=== PATIENT | female | born 1935 | race Caucasian/White ===

== ENCOUNTER → 2016-07-25 | Outpatient (CLI) | payer MEDICARE, OTHER ==
[~2016-07-25] MED LIST: ASPI-482 PO; CHOL20004 PO; DENO60DI SQ; IOHEXOL 180 MG/ML 10 ML VIAL. ONE; OMEP20CA5 PO; OXYC1TAB7 PO; SIMV20TA3 PO; SIMV40TA3 PO; TRIA1TAB2 PO; methylPREDNISolone ACETATE 40 MG/ML VIAL. ONE; methylPREDNISolone ACETATE 80 MG/ML VIAL. ONE
--- NOTE | 2016-07-26 02:26 | PAIN ---
DATE OF SERVICE: 07/25/2016 PROGRESS NOTE DIAGNOSES: Lumbar radiculopathy with lumbar spinal stenosis, degenerative disk disease and lumbar spondylosis. HISTORY OF PRESENT ILLNESS: The patient is an 81-year-old female who returns for followup status post lumbar epidural steroid injections, most recently on 04/26/2016. The patient reports she did very well with this near 100% improvement until the last 2-3 weeks. The patient reports now the pain in low back radiating to the right lower extremity in the posterior gluteus, posterior thigh and posterior calf, worse with walking and standing. The pain is deep, ache and constant, again worse with ambulation. The patient reports as a 6-7 on a scale of 10, currently a 6 right now. The patient reports no new motor or sensory deficits, no new bowel or bladder incontinence or other complaints, but still significant pain mostly with ambulation and standing. PHYSICAL EXAMINATION: VITAL SIGNS: Shows blood pressure 125/59, pulse 83, respirations 18, temperature 98.2 degrees Fahrenheit, and weight is 141 pounds. GENERAL: The patient is awake, alert, oriented, appropriate, very pleasant demeanor. HEENT: Shows normocephalic, atraumatic. Extraocular movements are intact and symmetrical. The patient wears eye glasses. Oral cavity shows mucous membranes are moist and pink. Dentition is intact. NECK: Shows anterior throat supple without palpable lymphadenopathy noted. Swallow reflex is symmetrical. CHEST: Shows normal on inspection. Breath sounds are clear to auscultation bilaterally. HEART: Shows S1 and S2 clear. ABDOMEN: Obese, soft, nontender, nondistended. No palpable organomegaly is noted. No rebound or guarding demonstrated. BACK: Shows spine grossly in midline, normal-appearing cervical lordotic curvature, slight exaggeration of thoracic kyphotic curvature and some mild flattening of lumbar lordotic curvature. Lumbar paraspinous musculature shows symmetrical with inspection. No evidence of atrophy, hypertrophy. With palpation, is moderately tender in the low lumbar distribution only bilaterally with palpation, but without radiation. No tenderness over the sacrum or sacroiliac regions. The patient shows good rotation of motion of the lumbar spine, both laterally as well as extension and flexion without radiation. EXTREMITIES: Lower extremities show deep tendon reflexes 1+ in the patellar and talocalcaneal tendons. Motor exam is strong with 5/5 dorsiflexion, extension, quadriceps and hamstring flexion and equal. Peripheral pulses are 1+ posterior tibial and dorsalis pedis pulses. PLAN: Options were discussed with the patient. The patient's old chart was reviewed as her current medication regimen and updated. Current review of systems updated today as well. We will proceed with a lumbar epidural steroid injection with fluoroscopic guidance as the first in this series. Risks were again discussed including, but not limited to bleeding, infection, possibility of epidural hematoma, subsequent neurologic compromise, dural puncture, headaches, spinal cord and/or nerve damage, side effects of steroid medication and poor results regarding pain control. The patient understands and wished to proceed. The patient will return to clinic in approximately 2 weeks for followup. She was counseled as to return appointment, activity level and side effects to be aware of. DIAGNOSES: Lumbar radiculopathy with lumbar spinal stenosis, degenerative disk disease and spondylosis. PROCEDURE: Lumbar epidural steroid injection, translaminar approach at the L5-S1 level using C-arm fluoroscopic guidance under sterile prep and drape using local anesthetic. MEDICATION INJECTED: 120 mg of Depo-Medrol plus 10 mL of preservative-free normal saline and 2 mL of Isovue contrast. CONDITION AT DISCHARGE: Stable. The patient tolerated the procedure well, had no complications. GAVINO COOK MD DR: SHAWNA/dar JOB#: [id number] / [id number]
== END | disposition home or self-care (01) ==
LOC: PNCL 08:15
PROVIDERS: ATTEND Anesthesiology
DX: M51.16 Intervertebral disc disorders with radiculopathy, lumbar region (principal); M48.06 Spinal stenosis, lumbar region; M47.26 Other spondylosis with radiculopathy, lumbar region
CPT/HCPCS: 62323; J1030; J1040

== ENCOUNTER → 2016-11-23 | Outpatient (CLI) | payer MEDICARE, OTHER ==
[~2016-11-23] MED LIST changes: -CHOL20004 PO; +CHOL200074 PO
--- NOTE | 2016-11-24 00:52 | PAIN ---
DATE OF SERVICE: 11/23/2016 DIAGNOSES: Lumbar radiculopathy with lumbar spinal stenosis, degenerative disk disease and lumbar spondylosis. HISTORY OF PRESENT ILLNESS: The patient is an 81-year-old female who returns for followup status post lumbar epidural steroid injection, last seen 07/25/2016. The patient did very well with this about a near 80-90% improvement, but is now about a 50% improvement in the low back and right lower extremity. The patient reports it is returning with about 5 on a scale of 10 at its worst and its least with a shooting pain in the low back, right lower extremity, posterior gluteus, posterior lateral thigh, and posterior calf. The patient reports worse with standing and walking, changing positions, but she feels better with sitting or lying down, does not awaken her from sleep at night. She is sleeping well, reports no new motor or sensory deficits, no new bowel or bladder incontinence or other complaints. PHYSICAL EXAMINATION: VITAL SIGNS: Today, the patient's blood pressure 137/60, pulse is 80, respirations are 18, temperature 98.0 degrees Fahrenheit. Height is 5 feet 2 inches, weight 143 pounds. GENERAL: The patient is awake, alert, oriented, appropriate, very pleasant demeanor. HEENT: Head shows normocephalic, atraumatic. Extraocular movements are intact and symmetrical. Oral cavity, mucous membranes are moist and pink. Dentition is intact. NECK: Shows anterior throat supple without palpable lymphadenopathy noted. Swallow reflex is symmetrical. Neck shows full rotational motion of cervical spine. CHEST: Shows normal on inspection. Breath sounds are clear to auscultation bilaterally. HEART: Shows S1 and S2 clear. No murmurs auscultated. ABDOMEN: Soft, nontender, nondistended. No palpable organomegaly, no rebound or guarding demonstrated. BACK: Shows spine grossly in the midline. Slight exaggeration of thoracic kyphosis, lumbar lordotic curvatures mildly flattened. Lumbar paraspinous muscle shows symmetrical on inspection with palpation shows mild tenderness in the lower lumbar distribution, more on the right than the left, but present bilaterally without significant atrophy, hypertrophy or trigger points. No radiation of pain, no tenderness over the sacrum or sacroiliac regions or the ____ spinous processes. EXTREMITIES: Lower extremities show deep tendon reflexes at 1+/4 in the patellar and tendo calcaneus tendons are equal. Motor exam is strong with 5/5 dorsiflexion, extension, quadriceps and hamstring flexion and symmetrical. Options were discussed with the patient and the patient's old chart was reviewed as her current medication regimen updated. Current review of systems updated today as well. We will proceed with a second in the series lumbar epidural steroid injection using the C-arm fluoroscopic guidance. Risks were again discussed including, but not limited to bleeding, infection, possibility of epidural hematoma, subsequent neurologic compromise, dural puncture, headaches, spinal cord and/or nerve damage, side effects of steroid medication and poor results regarding pain control. The patient understands and wishes to proceed. The patient will return to clinic in approximately 2 weeks for followup. She was counseled as to return appointment, activity level and side effects to be aware of. DIAGNOSES: Lumbar radiculopathy with lumbar spinal stenosis, degenerative disk disease and spondylosis. PROCEDURES: Lumbar epidural steroid injection in translaminar approach at the L5-S1 level using C-arm fluoroscopic guidance under sterile prep and drape using local anesthetic. MEDICATION INJECTED A total of 120 mg Depo-Medrol plus 10 mL of preservative-free normal saline and 2 mL of Isovue for contrast. CONDITION AT DISCHARGE: Stable. The patient tolerated procedure well, had no complications. GAVINO COOK MD DR: SHAWNA/dar JOB#: [id number] / [id number]
== END | disposition home or self-care (01) ==
LOC: PNCL 08:22
PROVIDERS: ATTEND Anesthesiology
DX: M51.16 Intervertebral disc disorders with radiculopathy, lumbar region (principal); M47.26 Other spondylosis with radiculopathy, lumbar region; M48.06 Spinal stenosis, lumbar region
CPT/HCPCS: 62323; J1030; J1040

== ENCOUNTER → 2016-12-21 | Outpatient (CLI) | payer MEDICARE, OTHER | END | disposition home or self-care (01) | LOC: PNCL 07:23 | PROVIDERS: ATTEND Anesthesiology | DX: M51.16 Intervertebral disc disorders with radiculopathy, lumbar region (principal); M47.26 Other spondylosis with radiculopathy, lumbar region; M48.06 Spinal stenosis, lumbar region | CPT/HCPCS: 62323; J1030; J1040 ==

== ENCOUNTER → 2017-04-04 | Outpatient (CLI) | payer MEDICARE, OTHER ==
--- NOTE | 2017-04-04 08:41 | PAIN ---
DATE OF SERVICE: 04/04/2017 DIAGNOSES: Lumbar radiculopathy with lumbar degenerative disk disease, spinal stenosis and lumbar spondylosis. HISTORY OF PRESENT ILLNESS: The patient is an 81-year-old female who returns for followup, status post lumbar epidural steroid injections, most recently seen on 12/21/2016. The patient did very well after the injections with approximately 80% improvement. Pain is still doing well, and is not so much into her right leg, but is in the low back and the right posterior gluteus to some extent. The patient reports it as aching and constant, becoming more constant with time and with increased activity. 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 This is starting to cause the pain to be more noticeable. The patient reports again still doing well with the right leg, but significant pain in the low back. The patient reports it is 6 on a scale of 10 at its least, its worst, and its average, aching, and again becoming more constant. The patient reports no new motor or sensory deficits, no new bowel or bladder incontinence or other complaints. PHYSICAL EXAMINATION: VITAL SIGNS: Today, the patient's blood pressure 150/71, pulse 84, respirations 18, temperature 98.4 degrees Fahrenheit, height is 5 feet 2 inches, weight 142 pounds. GENERAL: The patient is awake, alert, oriented, appropriate, very pleasant demeanor. HEENT: Head shows normocephalic, atraumatic. Extraocular movements are intact and symmetrical. Oral cavity, mucous membranes are moist and pink. Dentition is intact. NECK: Shows anterior throat supple without palpable lymphadenopathy noted. Swallow reflex is symmetrical. CHEST: Shows normal on inspection. Breath sounds clear to auscultation bilaterally. HEART: Shows S1 and S2 clear. No murmurs auscultated. ABDOMEN: Soft, nontender, nondistended. No palpable organomegaly. No rebound or guarding demonstrated. BACK: Shows spine grossly in midline. Slight exaggeration of thoracic kyphosis and mild flattening of lumbar lordotic curvature. Lumbar paraspinous muscle shows some moderate tenderness with palpation bilaterally throughout the upper, middle and lower distribution of paraspinous muscles, but without radiation, without atrophy or hypertrophy. The patient shows no tenderness over the sacrum or sacroiliac regions. The patient shows good rotation bilaterally with the rotation of lumbar spine, greater than 10 degrees right and left, as well as extension greater than 10 degrees, forward flexion 45 degrees without difficulty. EXTREMITIES: Lower extremities showed deep tendon reflexes at 1+/4 in the patellar and tendo calcaneus tendons. Motor exam is strong with 5/5 dorsiflexion and extension and equal. Options were discussed with the patient. The patient's old chart was reviewed, as her current medication regimen updated. Current review of systems updated today as well. We will proceed with a lumbar epidural steroid injection today with fluoroscopic guidance. Risks were again discussed including, but not limited to bleeding, infection, possibility of epidural hematoma, subsequent neurologic compromise, dural puncture, headaches, spinal cord and/or nerve damage, side effects of steroid medication and poor results regarding pain control. The patient understands and wishes to proceed. The patient will return to clinic in approximately 2 weeks for followup. She was counseled as to return appointment, activity level and side effects to be aware of. DIAGNOSES: Lumbar radiculopathy with lumbar degenerative disk disease, spinal stenosis and spondylosis. PROCEDURES: Lumbar epidural steroid injection in translaminar approach at the L5-S1 level using C-arm fluoroscopic guidance under sterile prep and drape using local anesthetic. Medications injected: A total of 120 mg Depo-Medrol plus 10 mL preservative-free normal saline and 2 mL Isovue for contrast. CONDITION AT DISCHARGE: Stable. The patient tolerated procedure well, had no complications. GAVINO COOK MD DR: SHAWNA/dar JOB#: [id number] / [id number]
== END | disposition home or self-care (01) ==
LOC: PNCL 07:37
PROVIDERS: ATTEND Anesthesiology
DX: M51.16 Intervertebral disc disorders with radiculopathy, lumbar region (principal); M47.26 Other spondylosis with radiculopathy, lumbar region; M48.061 Spinal stenosis, lumbar region without neurogenic claudication
CPT/HCPCS: 62323; J1030; J1040

== ENCOUNTER → 2018-03-27 | Outpatient (CLI) | payer MEDICARE ==
[~2018-03-27] MED LIST changes: +LIDOCAINE 1% PF 2 ML VIAL. ONE
--- NOTE | 2018-03-27 19:25 | PAIN ---
DATE OF SERVICE: 03/27/2018 DIAGNOSES: Lumbar radiculopathy with lumbar degenerative disk disease, lumbar spinal stenosis with lumbar spondylosis. HISTORY OF PRESENT ILLNESS: The patient is an 82-year-old female, returns for followup status post lumbar epidural steroid injections, last seen on 04/04/2017. The patient did very well, but reports that just before Easter this year, she fell at religion while she was doing some decorating, stepped backwards on some stairs and broke her right femur. The patient reports she had to have internal fixation, but since that time has had significant pain across the low back. It is getting worse over the past 2-3 months when she is walking, standing, change in positions, bending, stooping, sitting for more than 15-20 minutes. The patient reports it is better when she lies down, usually do not awaken her from sleep. The patient reports pain is a 6 on a scale of 10 at all times, worst, average and at its least. It is aching, sometime sharp, constant across the low back, somewhat into the left lower extremity as well as in the posterior gluteus, posterior thigh, but generally just in the low back. The patient reports no new motor or sensory deficits. No new bowel or bladder incontinence or other complaints. PHYSICAL EXAMINATION: VITAL SIGNS: The patient's blood pressure 136/77, pulse 85, respirations 18, temperature 98.2 degrees Fahrenheit, height is 5 feet 2 inches, weighs 132 pounds. GENERAL: The patient is awake, alert, oriented, appropriate, very pleasant demeanor. HEENT: Shows normocephalic, atraumatic. Extraocular movements are intact and symmetrical. Oral cavity: Mucous membranes moist and pink. Dentition is intact. NECK: Shows anterior throat supple without palpable lymphadenopathy noted. Swallow reflex is symmetrical. CHEST: Shows normal on inspection. Breath sounds are clear to auscultation bilaterally. HEART: Shows S1, S2 clear. No murmurs auscultated. ABDOMEN: Soft, obese, nontender, nondistended. No palpable organomegaly is noted. No rebound or guarding demonstrated. BACK: Shows spine grossly in the midline. Normal appearing thoracic kyphosis and lumbar lordotic curvature. Lumbar paraspinous muscle shows symmetrical on inspection. Slight flattening of lumbar lordotic curvature. With palpation shows some moderate tenderness diffusely in the low lumbar distribution bilaterally, but only diffusely without atrophy or hypertrophy. No asymmetry, no trigger points. The patient has good rotational motion of lumbar spine, both laterally as well as extension and flexion without significant difficulty. EXTREMITIES: Lower extremities show deep tendon reflexes 1+ in the patellar and tendo calcaneus tendons. Motor exam is strong with 5/5 dorsiflexion, extension and equal bilaterally. Peripheral pulses are 1+ posterior tibia. No peripheral edema is noted. Options were discussed with the patient. The patient's old chart was reviewed as is her current medication regimen updated. Current review of systems is updated today as well. We will proceed with a lumbar epidural steroid injection today with fluoroscopic guidance. Risks were discussed including but not limited to bleeding, infection, possibility of epidural hematoma and subsequent neurological compromise, dural puncture, headaches, spinal cord and/or nerve damage, side effects of steroid medication and poor results regarding pain control. The patient understands and wished to proceed. The patient will return to the clinic in approximately 2 weeks for followup, was counseled on return appointment, activity level and side effects to be aware of. DIAGNOSES: Lumbar radiculopathy with lumbar degenerative disk disease, lumbar spinal stenosis and lumbar spondylosis. PROCEDURE: Lumbar epidural steroid injection, translaminar approach L5-S1 level using C-arm fluoroscopic guidance under sterile prep and drape using local anesthetic. MEDICATION INJECTED: A total of 120 mg Depo-Medrol plus 10 mL of preservative-free normal saline and 2 mL of Isovue for contrast. CONDITION AT DISCHARGE: Stable. The patient tolerated the procedure well, had no complications. GAVINO COOK MD DR: SHAWNA/dar JOB#: [id number] / [id number]
== END | disposition home or self-care (01) ==
LOC: PNCL 08:19
PROVIDERS: ATTEND Anesthesiology
DX: M51.16 Intervertebral disc disorders with radiculopathy, lumbar region (principal); M48.061 Spinal stenosis, lumbar region without neurogenic claudication; M47.26 Other spondylosis with radiculopathy, lumbar region
CPT/HCPCS: 62323; J1030; J1040; Q9965

== ENCOUNTER → 2018-04-16 | Outpatient (CLI) | payer MEDICARE ==
[~2018-04-16] MED LIST changes: -LIDOCAINE 1% PF 2 ML VIAL. ONE
--- NOTE | 2018-04-17 00:44 | PAIN ---
DATE OF SERVICE: 04/16/2018 PROGRESS NOTE FOR PAIN CLINIC DIAGNOSES: Lumbar radiculopathy with lumbar degenerative disk disease, lumbar spinal stenosis and spondylosis. HISTORY OF PRESENT ILLNESS: The patient is an 82-year-old female who returns for followup status post lumbar epidural steroid injection x 1, last seen on 03/27/2018. The patient did well but only for a very short period of time and reports the pain is not relieved what it usually is. It is still in her low back and left lower extremity, mostly in the posterior gluteus, posterior thigh, posterior calf and some in the lateral thigh as well. The patient reports it is worse with standing, walking, changing positions. Reports it is aching and becoming more constant. The patient reports it is an 8 on a scale of 10 at all times, average, worst and its least and is an 8 today. The patient reports no new motor or sensory deficits, has been awakening her from sleep occasionally but not usually from the pain. The patient reports it is worse with standing, walking, changing positions, better with sitting or lying down. The patient reports no new motor or sensory deficits and no new bowel or bladder incontinence or other complaints. PHYSICAL EXAMINATION: VITAL SIGNS: The patient's blood pressure 139/72, pulse 93, respirations 18 and temperature 97.8 degrees Fahrenheit. Height is 5 feet 2 inches and weight is 133 pounds. GENERAL: The patient is awake, alert, oriented, appropriate and very pleasant demeanor. HEENT: Head shows normocephalic and atraumatic. Extraocular movements are intact and symmetrical. Oral cavity: Mucous membranes moist and pink. Dentition is intact. NECK: Shows anterior throat supple without palpable lymphadenopathy noted. Swallow reflex symmetrical. CHEST: Shows normal on inspection. Breath sounds clear to auscultation bilaterally. HEART: Shows S1 and S2 clear. No murmurs auscultated. ABDOMEN: Soft, nontender and nondistended. No palpable organomegaly is noted. No rebound or guarding demonstrated. BACK: Shows spine grossly in the midline. Slight exaggeration of the thoracic kyphosis but some minor flattening only, lumbar lordotic curvature. Lumbar paraspinous muscle shows symmetrical on inspection, on palpation shows some moderate tenderness diffusely throughout the upper, middle and lower distribution of the paraspinous muscles but without radiation. No tenderness over the sacrum or sacroiliac regions. EXTREMITIES: The patient's lower extremities show deep tendon reflexes 1+ in the patellar and tendo-calcaneus tendons. Motor exam is strong with 5/5 dorsiflexion, extension, quadriceps and hamstring flexion and equal bilaterally. Peripheral pulses are 1+ posterior tibia. No peripheral edema is noted bilaterally. Options were discussed with the patient. The patient's old chart was reviewed as well as her current medication regimen updated. Current review of systems updated today as well. We will proceed with a second in the series lumbar epidural steroid injection today with fluoroscopic guidance. Risks were again discussed including, but not limited to bleeding, infection, possibility of epidural hematoma, subsequent neurologic compromise, dural puncture, headaches, spinal cord and/or nerve damage, side effects of steroid medication and poor results regarding pain control. The patient understands and wished to proceed. The patient will return to the clinic in approximately 2 weeks for followup, was counseled as to return appointment, activity level and side effects to be aware of. DIAGNOSES: Lumbar radiculopathy with lumbar degenerative disk disease, lumbar spinal stenosis and lumbar spondylosis. PROCEDURE: Lumbar epidural steroid injection, translaminar approach at the L5-S1 level using C-arm fluoroscopic guidance under sterile prep and drape using local anesthetic. MEDICATION INJECTED: A total of 120 mg Depo-Medrol plus 10 mL of preservative-free normal saline and 2 mL of Isovue for contrast. CONDITION AT DISCHARGE: Stable. The patient tolerated the procedure well and had no complications. GAVINO COOK MD DR: SHAWNA/dar JOB#: [id number] / [id number]
== END | disposition home or self-care (01) ==
LOC: PNCL 13:15
PROVIDERS: ATTEND Anesthesiology
DX: M51.16 Intervertebral disc disorders with radiculopathy, lumbar region (principal); M47.896 Other spondylosis, lumbar region; M48.061 Spinal stenosis, lumbar region without neurogenic claudication; Z98.890 Other specified postprocedural states
CPT/HCPCS: 62323; J1030; J1040; Q9965

== ENCOUNTER → 2018-08-21 | Outpatient (CLI) | payer MEDICARE ==
[~2018-08-21] MED LIST changes: +BUPIVACAINE MPF 0.25% 10 ML VIAL. ONE; -methylPREDNISolone ACETATE 40 MG/ML VIAL. ONE
--- NOTE | 2018-08-22 05:28 | PAIN ---
DATE OF SERVICE: 08/21/2018 PROGRESS NOTE FOR PAIN CLINIC DIAGNOSES: 1. Lumbar radiculopathy with lumbar spinal stenosis, lumbar degenerative disk disease and lumbar spondylosis. 2. Left greater trochanteric bursitis. HISTORY OF PRESENT ILLNESS: The patient is an 83-year-old female who returns for followup status post lumbar epidural steroid injection x 2, most recently seen on 04/16/2018. The patient reports she did very well and her back has been remarkably better with about 80% improvement overall. The patient reports she fell about 2 weeks ago in the [employer] parking lot on her left side and has had pain in the left lateral aspect of the hip and radiating into the lateral leg on occasion, some days it is much better, some days it is worse, today it is much worse. Yesterday, the patient reports she had very little pain at all in the left side, some across the low back, but essentially her low back she reports is doing quite well. The patient reports the pain in the hip and leg is shooting, stabbing, becoming more constant and worse with activity. The pain has been awakening her from sleep occasionally, but not every night only if she lays on her left side. The patient reports the pain is a 5 on a scale of 10 at its worst, 3 at its least, is a 5 on average and is a 5 today. The patient reports no new motor or sensory deficits, no new bowel or bladder incontinence or other complaints. PHYSICAL EXAMINATION: VITAL SIGNS: The patient's blood pressure 150/73, pulse 81, respirations 16, temperature 98.1 degrees Fahrenheit, height is 5 feet 2 inches and weight is 134 pounds. GENERAL: The patient is awake, alert, oriented, appropriate, very pleasant demeanor. HEENT: Head shows normocephalic and atraumatic. Extraocular movements are intact and symmetrical. Oral cavity: Mucous membranes are moist and pink. Dentition is intact. NECK: Shows anterior throat is supple without palpable lymphadenopathy noted. Swallow reflex is symmetrical. CHEST: Shows normal with inspection. Breath sounds are clear to auscultation bilaterally. HEART: Shows S1 and S2 clear. No murmurs are auscultated. ABDOMEN: Soft, nontender and nondistended. No palpable organomegaly is noted. No rebound or guarding demonstrated. BACK: Shows spine grossly in the midline. Slight exaggeration of the thoracic kyphosis and mild flattening of the lumbar lordotic curvature. Lumbar paraspinous muscle shows symmetrical on inspection. On palpation shows some moderate tenderness, but only diffusely without radiation. The patient has good rotational motion of the lumbar spine both laterally as well as extension and flexion without significant difficulty or pain reported. EXTREMITIES: The patient's lower extremities show deep tendon reflexes 1+ in the patellar and tendo-calcaneus tendons. Motor exam is strong with 5/5 dorsiflexion, extension and quadriceps and hamstring flexion equal. Peripheral pulses are 1+ posterior tibial. No peripheral edema is noted. The patient's left thigh shows significant tenderness over the left greater trochanter exquisitely tender with the patient withdrawing from the examining hand even with moderate pressure. Right side is nontender and the patient has had hip replacement on this side, but the left greater trochanter extremely tender with palpation. Options were discussed with the patient. The patient's old chart was reviewed as was her current medication regimen updated. Current review of systems updated today as well. We will proceed with a left-sided greater trochanteric bursa injection under fluoroscopic guidance. Risks were discussed including but not limited to bleeding, infection, possibility of intravascular injection sequelae, spread of local anesthetic and numbness, side effects of steroid medication, exposure to fluoroscopy as well as poor results regarding pain control. The patient understands and wished to proceed. The patient will return to the clinic in approximately 2 weeks or as necessary, was counseled as to return appointment, activity level and side effects to be aware of. DIAGNOSIS: Left greater trochanteric bursitis. PROCEDURES: Left greater trochanteric bursa injection under fluoroscopic guidance under sterile prep and drape using local anesthetic. MEDICATION INJECTED: A total of 40 mg of Depo-Medrol plus total of 3 mL of 0.25% bupivacaine and 2 mL of Isovue for contrast. CONDITION AT DISCHARGE: Stable. The patient tolerated the procedure well and had no complications. GAVINO COOK MD DR: SHAWNA/dar JOB#: [id number] / [id number]
== END | disposition home or self-care (01) ==
LOC: PNCL 09:00
PROVIDERS: ATTEND Anesthesiology
DX: M70.62 Trochanteric bursitis, left hip (principal); M48.061 Spinal stenosis, lumbar region without neurogenic claudication; M47.26 Other spondylosis with radiculopathy, lumbar region; M51.16 Intervertebral disc disorders with radiculopathy, lumbar region
CPT/HCPCS: 20610; 77002; J1040; J3490; Q9965; 20605

== ENCOUNTER → 2018-09-25 | Outpatient (CLI) | payer MEDICARE ==
[~2018-09-25] MED LIST changes: -BUPIVACAINE MPF 0.25% 10 ML VIAL. ONE; +methylPREDNISolone ACETATE 40 MG/ML VIAL. ONE
--- NOTE | 2018-09-26 04:58 | PAIN ---
DATE OF SERVICE: 09/25/2018 PROGRESS NOTE FOR PAIN CLINIC DIAGNOSES: Lumbar radiculopathy with lumbar spinal stenosis and lumbar degenerative disk disease with lumbar spondylosis. HISTORY OF PRESENT ILLNESS: The patient is an 83-year-old female who returns for followup status post lumbar epidural steroid injection and also, left greater trochanteric bursa injection. The patient reports she did very well after the last hip injection with about near 100% for the first 3-4 weeks. The patient reports the pain is returning now in the low back, radiating to posterior gluteus, posterior thigh, posterior calf and the lateral thigh and calf as well on the left side only. The patient reports no new motor or sensory deficits, no new bowel or bladder incontinence. It is getting worse with walking, standing, change in positions. The patient describes the pain as dull, alternating with sharp and shooting in the left lower extremity, none on the right side. The patient reports it awakens her from sleep, but only about every 6 hours or so and has only been doing this for about a week. The patient reports it is better with repositioning. She needs to get out of bed, change positions and get back to sleep. The patient reports no new motor or sensory deficits, no new bowel or bladder incontinence. Initially, the patient was able to walk better with greater ease and comfort, doing activities at home as well as volunteering with greater ease. The patient reports the pain is a 5 on a scale of 10 at all times, average, worst and least over the past week. PHYSICAL EXAMINATION: VITAL SIGNS: Today, the patient's blood pressure is 147/69, pulse 77, respirations are 18, temperature is 97.6 degrees Fahrenheit, height is 5 feet 2 inches, weight is 134 pounds. GENERAL: The patient is awake, alert, oriented, appropriate, very pleasant demeanor. HEENT: Head normocephalic, atraumatic. Extraocular movements are intact and symmetrical. Oral cavity, mucous membranes are moist and pink. Dentition is intact. NECK: Shows anterior throat supple without palpable lymphadenopathy noted. Swallow reflex is symmetrical. CHEST: Shows normal with inspection. Breath sounds clear to auscultation bilaterally. HEART: Shows S1, S2 clear. No murmurs auscultated. ABDOMEN: Soft, nontender, nondistended. No palpable organomegaly is noted. No rebound or guarding demonstrated. BACK: Shows spine grossly in the midline. Slight exaggeration of thoracic kyphosis and some minor flattening of lumbar lordotic curvature. Lumbar paraspinous muscle shows symmetrical on inspection, on palpation shows some moderate tenderness diffusely bilaterally, but only diffusely without significant radiation. The patient shows good rotational motion of lumbar spine both laterally as well as extension and flexion without significant difficulty. EXTREMITIES: The patient's lower extremities show deep tendon reflexes 1+ in the patellar and tendo calcaneus tendons. Motor exam is strong with 5/5 dorsiflexion, extension, quadriceps and hamstring flexion equal. Peripheral pulses are 1+ posterior tibia. No peripheral edema is noted bilaterally. Options were discussed with the patient. The patient's old chart was reviewed as her current medication regimen updated. Current review of systems updated today as well. We will proceed with a second in the series of lumbar epidural steroid injection with fluoroscopic guidance. Risks were again discussed including, but not limited to, bleeding, infection, possibility of epidural hematoma, subsequent neurological compromise, dural puncture, headaches, spinal cord and/or nerve damage, side effects of steroid medication and poor results regarding pain control. The patient understands and wished to proceed. The patient will return to the clinic in approximately 2 weeks for followup. She was counseled as to return appointment, activity level and side effects to be aware of. DIAGNOSIS: Lumbar radiculopathy with lumbar degenerative disk disease with lumbar spinal stenosis and lumbar spondylosis. PROCEDURE: Lumbar epidural steroid injection, translaminar approach at L5-S1 level using C-arm fluoroscopic guidance under sterile prep and drape using local anesthetic. MEDICATION INJECTED: A total of 120 mg Depo-Medrol plus 10 mL of preservative free normal saline and 2 mL of Isovue for contrast. CONDITION AT DISCHARGE: Stable. The patient tolerated the procedure well, had no complications. GAVINO COOK MD DR: SHAWNA/dar JOB#: [id number] / [id number]
== END | disposition home or self-care (01) ==
LOC: PNCL 12:56
PROVIDERS: ATTEND Anesthesiology
DX: M51.16 Intervertebral disc disorders with radiculopathy, lumbar region (principal); M48.061 Spinal stenosis, lumbar region without neurogenic claudication; M47.26 Other spondylosis with radiculopathy, lumbar region
CPT/HCPCS: 62323; J1030; J1040; Q9965

== ENCOUNTER → 2018-10-17 | Outpatient (CLI) | payer MEDICARE ==
[~2018-10-17] MED LIST changes: +BUPIVACAINE MPF 0.25% 10 ML VIAL. ONE; -methylPREDNISolone ACETATE 40 MG/ML VIAL. ONE
--- NOTE | 2018-10-17 18:54 | PAIN ---
DATE OF SERVICE: 10/17/2018 DIAGNOSES: 1. Lumbar radiculopathy with lumbar spinal stenosis, lumbar degenerative disk disease with lumbar spondylosis. 2. Left greater trochanteric bursitis. HISTORY OF PRESENT ILLNESS: The patient is an 83-year-old female who returns for followup status post lumbar epidural steroid injection x 2. The patient returns reporting doing very well with the back and left lower extremity pain, but her main complaint is left-sided lateral hip pain that she has had previously. The patient reports this came on just a few days ago without results of any specific injury or action. The patient reports she did stumble at [employer] and fell on her right side. The patient reports her left side has been painful though on the lateral aspect of the hips, radiating to the lateral aspect of the thigh, to the knee. The patient reports it is an 8 on a scale of 10 on average, worst and least and is an 8 today. It is sharp and constant, becoming more noticeable with walking and standing or bending her leg or stepping to the left side. The patient reports it does not awaken her from sleep at night. She feels better with sitting or lying down. No new motor or sensory deficits, no new bowel or bladder incontinence or other complaints. PHYSICAL EXAMINATION: VITAL SIGNS: The patient's blood pressure is 130/63, pulse 74, respirations are 16, temperature is 97.7 degrees Fahrenheit. Height is 5 feet 2 inches, weight is 132 pounds. GENERAL: The patient is awake, alert, oriented, appropriate, very pleasant demeanor. HEENT: Head is normocephalic, atraumatic. Extraocular movements intact and symmetrical. Oral cavity appears moist and pink. Dentition is intact. NECK: Shows anterior throat supple without palpable lymphadenopathy noted. Swallow reflex is symmetrical. CHEST: Shows normal with inspection. Breath sounds clear to auscultation bilaterally. HEART: Shows S1, S2 clear. No murmurs auscultated. ABDOMEN: Soft, nontender, nondistended. No palpable organomegaly is noted. No rebound or guarding demonstrated. BACK: Shows spine grossly in the midline. Normal-appearing thoracic kyphosis and lumbar lordotic curvature. Lumbar paraspinous muscle shows symmetrical on inspection. The patient has some [id number] tenderness in the low lumbar distribution only without asymmetry. The patient has good rotational motion of lumbar spine, both laterally as well as extension and flexion without difficulty. EXTREMITIES: The patient's lower extremities show deep tendon reflexes 1+ in the patellar and tendo calcaneus tendons are equal. Motor exam is strong with 5/5 dorsiflexion, extension and symmetrical. The patient's left hip shows significant tenderness with very severe pain over the left greater trochanter with moderate to deep palpation. Right side is nontender. Options were discussed with the patient. The patient's old chart was reviewed as was his current medication regimen updated. Current review of systems updated today as well. We will proceed with a left greater trochanteric bursa injection using C-arm fluoroscopic guidance under sterile prep and drape. Risks were discussed including but not limited to bleeding, infection, possibility of intravascular injection sequelae, spread of local anesthetic and numbness, side effects of steroid medication and poor results regarding pain control. The patient understands and wished to proceed. The patient will return to clinic in approximately 2 weeks for followup, was counseled as to return appointment, activity level and side effects to be aware of. DIAGNOSIS: Left greater trochanteric bursitis. PROCEDURE: Left greater trochanteric bursa injection under C-arm fluoroscopic guidance, using sterile prep and drape, using local anesthetic. MEDICATION INJECTED: A total of 80 mg Depo-Medrol plus total of 2 mL of 0.25% bupivacaine and 1.5 mL of contrast. CONDITION AT DISCHARGE: Stable. The patient tolerated the procedure well, had no complications. GAVINO COOK MD DR: SHAWNA/dar JOB#: [id number] / [id number]
== END | disposition home or self-care (01) ==
LOC: PNCL 09:05
PROVIDERS: ATTEND Anesthesiology
DX: M70.62 Trochanteric bursitis, left hip (principal); M51.16 Intervertebral disc disorders with radiculopathy, lumbar region; M48.061 Spinal stenosis, lumbar region without neurogenic claudication; M47.26 Other spondylosis with radiculopathy, lumbar region
CPT/HCPCS: 20610; 77002; J1040; J3490; Q9965; 20605

== ENCOUNTER → 2019-01-07 | Outpatient (CLI) | payer MEDICARE ==
[~2019-01-07] MED LIST changes: -BUPIVACAINE MPF 0.25% 10 ML VIAL. ONE; +methylPREDNISolone ACETATE 40 MG/ML VIAL. ONE
--- NOTE | 2019-01-07 08:36 | PAIN ---
DATE OF SERVICE: 01/07/2019 PROGRESS NOTE FOR PAIN CLINIC DIAGNOSES: Lumbar radiculopathy with lumbar degenerative disk disease with lumbar spinal stenosis and lumbar spondylosis. HISTORY OF PRESENT ILLNESS: The patient is an 83-year-old female who returns for followup status post lumbar epidural steroid injection as well as left greater trochanteric bursa injections. The patient reports she did very well after left hip injection. Her pain is returning in her low back. It has been since September since she has not had any treatment for it in the left leg with significant pain and fatigability especially with walking and standing in the posterior gluteus, posterior thigh, posterior calf on the left side, radiating. The patient reports it is dull and aching in the back and shooting in the leg. The patient reports it as a 5 on a scale of 10 at all times, worst, least and average and is a 5/10 today. The patient reports no new motor or sensory deficits. Initially, she was doing much better with increased walking and standing, but this is becoming more noticeable now in the last 3-4 weeks. The patient reports no new motor or sensory deficits, no new bowel or bladder incontinence, but significant fatigability with the left leg with walking even more than about 5-10 minutes. PHYSICAL EXAMINATION: VITAL SIGNS: The patient's blood pressure is 143/63, pulse 84, respirations 18, temperature 98.2 degrees Fahrenheit. Height is 5 feet 2 inches. Weight is 134 pounds. GENERAL: The patient is awake, alert, oriented, appropriate, very pleasant demeanor. HEENT: Head shows normocephalic, atraumatic. Extraocular muscles are intact and symmetrical. Oral cavity: Mucous membranes are moist and pink. Dentition is intact. NECK: Shows anterior throat supple without palpable lymphadenopathy noted. Swallow reflex symmetrical. CHEST: Shows normal on inspection. Breath sounds clear to auscultation bilaterally. HEART: Shows S1, S2 clear. No murmurs auscultated. ABDOMEN: Soft, nontender, nondistended. BACK: Shows spine grossly in the midline, slight exaggeration of thoracic kyphosis and minor flattening of lumbar lordotic curvature. Lumbar paraspinous muscle shows symmetrical on inspection with palpation shows some moderate tenderness diffusely, but only diffusely without radiation. The patient has good rotational motion of lumbar spine, both laterally as well as extension and flexion without significant difficulty. EXTREMITIES: Lower extremities showed deep tendon reflexes at 1+ in the patellar and tendo calcaneus tendons are equal. Motor exam is strong with approximately 4 on a scale of 5 with left dorsiflexion, extension at 5/5 on the right. Peripheral pulses are 1+ posterior tibia. No peripheral edema is noted. Options were discussed with the patient. The patient's old chart was reviewed as her current medication regimen updated. Current review of systems updated today as well. We will proceed with a lumbar epidural steroid injection today with fluoroscopic guidance. Risks were again discussed including, but not limited to bleeding, infection, possibility of epidural hematoma, subsequent neurologic compromise, dural puncture, headaches, spinal cord and/or nerve damage, side effects of steroid medications and poor results regarding pain control. The patient understands and wished to proceed. The patient will return to clinic in approximately 2 weeks for followup, was counseled as to return appointment, activity level and side effects to be aware of. DIAGNOSES: Lumbar radiculopathy with lumbar spinal stenosis, lumbar degenerative disk disease, lumbar spondylosis. PROCEDURE: Lumbar epidural steroid injection, translaminar approach L5-S1 level using C-arm fluoroscopic guidance under sterile prep and drape using local anesthetic. MEDICATIONS INJECTED: A total of 120 mg of Depo-Medrol plus 10 mL of preservative-free normal saline and 2 mL of Isovue for contrast. CONDITION AT DISCHARGE: Stable. The patient tolerated the procedure well and had no complications. GAVINO COOK MD DR: SHAWNA/dar JOB#: [id number] / [id number]
== END ==
LOC: PNCL 07:36
PROVIDERS: ATTEND Anesthesiology
DX: M51.16 Intervertebral disc disorders with radiculopathy, lumbar region (principal); M48.061 Spinal stenosis, lumbar region without neurogenic claudication; M47.816 Spondylosis without myelopathy or radiculopathy, lumbar region
CPT/HCPCS: 62323; J1030; J1040; Q9965

== ENCOUNTER → 2019-02-14 | Outpatient (CLI) | payer MEDICARE ==
--- NOTE | 2019-02-14 10:42 | PN ---
DATE: 02/14/2019 PROGRESS NOTE FOR PAIN CLINIC DIAGNOSIS: Lumbar radiculopathy with lumbar spinal stenosis, lumbar degenerative disk disease and lumbar spondylosis. HISTORY OF PRESENT ILLNESS: The patient is an 83-year-old female who returns for followup status post lumbar epidural steroid injection x 1 on January 07, 2019. The patient reports she did well, but not as well as she usually does with the injections. The patient reports still significant pain in the low back, left lower extremity, posterior thigh, posterior calf, lateral and anterior thigh as well on the left side. The patient reports it is worse with walking, standing, change in positions, has had some trouble walking using a cane over the last few days, does not using it today as she feels somewhat better. The patient reports her pain is 9 on a scale of 10 at its worst in the past week, 6 on average, 2 at its least and is at 2 today. The patient reports no new motor or sensory deficits. Current pain is aching, shooting, burning, cramping, sometimes severe, sometimes constant with standing and walking, but again better over the last few days. The patient reports it does not awaken her from sleep at night. No new motor or sensory deficits. No new bowel or bladder incontinence reported. PHYSICAL EXAMINATION: VITAL SIGNS: The patient's blood pressure 165/73, pulse 74, respirations are 16, temperature is 97.5 degrees Fahrenheit and weight is 131 pounds. GENERAL: The patient is awake, alert, oriented, appropriate, very pleasant demeanor. HEENT: Shows normocephalic, atraumatic. Extraocular movements are intact and symmetrical. Oral cavity: Mucous membranes moist and pink. Dentition is intact. NECK: Shows anterior throat supple without palpable lymphadenopathy noted. Swallow reflex symmetrical. CHEST: Shows normal on inspection. Breath sounds clear to auscultation bilaterally. HEART: Shows S1, S2 clear. No murmurs auscultated. ABDOMEN: Soft, nontender, nondistended. No palpable organomegaly is noted. There is no rebound or guarding demonstrated. BACK: Shows spine grossly in the midline. Normal appearing thoracic kyphosis and minor flattening of lumbar lordotic curvature. Lumbar paraspinous muscle shows symmetrical on inspection, on palpation shows some moderate tenderness diffusely bilaterally. The patient has full rotational motion of lumbar spine both laterally as well as extension and flexion are without difficulty. EXTREMITIES: Lower extremities show deep tendon reflexes 1+ in the patellar and tendo calcaneus tendons. Motor exam is approximately 4 on a scale of 5 on the left with dorsiflexion, extension, quadriceps and hamstring flexion on the right. Peripheral pulses are 1+. No peripheral edema is noted bilaterally. Options were discussed with the patient. The patient's old chart was reviewed as her current medication regimen updated. Current review of systems updated today as well. We will proceed with a lumbar epidural steroid injection today with fluoroscopic guidance at the second in the series. Risks were again discussed including, but not limited to bleeding, infection, possibility of epidural hematoma, subsequent neurological compromise, dural puncture, headaches, spinal cord and/or nerve damage, side effects of steroid medication and poor results regarding pain control. The patient understands and wished to proceed. The patient will return to our clinic in approximately 2 weeks for followup. She was counseled on return appointment, activity level and side effects to be aware of. DIAGNOSES: Lumbar radiculopathy with lumbar degenerative disk disease, spinal stenosis and lumbar spondylosis. PROCEDURE: Lumbar epidural steroid injection, translaminar approach L5-S1 level with C-arm fluoroscopic guidance under sterile prep and drape using local anesthetic. MEDICATION INJECTED: A total of 120 mg Depo-Medrol plus 10 mL of preservative-free normal saline and 2 mL of contrast. CONDITION AT DISCHARGE: Stable. The patient tolerated the procedure well, had no complications. GAVINO COOK MD DR: SHAWNA/dar JOB#: [id number] / [id number]
== END ==
LOC: PNCL 08:30
PROVIDERS: ATTEND Anesthesiology
DX: M51.16 Intervertebral disc disorders with radiculopathy, lumbar region (principal); M48.061 Spinal stenosis, lumbar region without neurogenic claudication; M47.816 Spondylosis without myelopathy or radiculopathy, lumbar region
CPT/HCPCS: 62323; J1030; J1040; Q9965

== ENCOUNTER → 2019-02-17 | Outpatient (CLI) | payer MEDICARE ==
[~2019-02-17] MED LIST changes: -IOHEXOL 180 MG/ML 10 ML VIAL. ONE; -methylPREDNISolone ACETATE 40 MG/ML VIAL. ONE; -methylPREDNISolone ACETATE 80 MG/ML VIAL. ONE
--- NOTE | 2019-02-17 15:38 | KCIC ---
LUMBAR SPINE WO CONTRAST History: Lumbar radiculopathy. Technique: Multiplanar, multi sequential MR imaging was performed of the lumbar spine. Comparison: None Findings: Grade 1 anterolisthesis L3 on L4 and L4 on L5. Minimal retrolisthesis T12 on L1 and L1 on L2. Normal vertebral body height. No fracture. No pathologic marrow replacing process. Conus terminates at the normal location. No evidence of nerve root clumping. Signal abnormality along the left posterior aspect of the thecal sac at the L4-L5 level extending inferiorly surrounding the descending sacral nerve roots on the left. L1-L2: Small posterior disc bulge. Mild facet arthropathy. No canal or neuroforaminal narrowing. L2-L3: Small posterior disc bulge. Moderate facet arthropathy. Mild bilateral subarticular recess narrowing. Ligament of flavum thickening. No canal narrowing. No neuroforaminal narrowing. L3-L4: Anterolisthesis. Disc uncovering. Posterior disc bulge. Moderate facet arthropathy. Mild to moderate canal narrowing. Severe subarticular recess narrowing. Mild to moderate right and mild left neuroforaminal narrowing. L4-L5: Anterolisthesis. Disc uncovering. Disc bulge. Advanced facet arthropathy. Severe subarticular recess narrowing. Moderate canal narrowing. Moderate left and mild right neuroforaminal narrowing. L5-S1: Broad-based posterior disc bulge. Moderate facet arthropathy. Severe subarticular recess narrowing. Mild canal narrowing. Severe right and moderate left neural foraminal narrowing. Impression: 1. Moderate multilevel lumbar spondylosis with advanced lower lumbar facet arthropathy and multilevel severe subarticular recess narrowing L3-L4, L4-L5 and L5-S1. 2. Moderate L4-L5 and mild to moderate L3-L4 canal narrowing. 3. Multilevel neural foraminal narrowing most prominent severe right L5-S1. 4. Grade 1 anterolisthesis L3 on L4 and L4 on L5. 5. Signal abnormality along the left posterior aspect of the thecal sac at the L4-L5 level surrounding and left sacral nerve roots. Comparison with prior imaging studies would be of benefit. If comparisons cannot be obtained postcontrast imaging can further assess. Electronically signed by: Zhao Ramirez DO (02/17/2019 3:35 PM) [id number]
== END | disposition home or self-care (01) ==
LOC: KCIC MRI 12:52
PROVIDERS: ATTEND Anesthesiology
DX: M47.26 Other spondylosis with radiculopathy, lumbar region (principal); M12.88 Other specific arthropathies, not elsewhere classified, other specified site; M48.07 Spinal stenosis, lumbosacral region; M47.818 Spondylosis without myelopathy or radiculopathy, sacral and sacrococcygeal region; M43.16 Spondylolisthesis, lumbar region
CPT/HCPCS: 72148

== ENCOUNTER → 2019-04-24 | Outpatient (CLI) | payer MEDICARE ==
[~2019-04-24] MED LIST changes: +ATOR40TA59 PO; +BUPIVACAINE MPF 0.25% 10 ML VIAL. ONE; +IOHEXOL 180 MG/ML 10 ML VIAL. ONE; +SIMV20TA18 PO; -SIMV20TA3 PO; +SIMV40TA18 PO; -SIMV40TA3 PO; +SPIR25TA5 PO; +methylPREDNISolone ACETATE 80 MG/ML VIAL. ONE
--- NOTE | 2019-04-24 10:31 | PAIN ---
DATE OF SERVICE: 04/24/2019 PROGRESS NOTE FOR PAIN CLINIC DIAGNOSES: 1. Lumbar radiculopathy with lumbar spinal stenosis, lumbar degenerative disk disease and lumbar spondylosis. 2. Left sacroiliitis. 3. Left greater trochanteric bursitis. HISTORY OF PRESENT ILLNESS: The patient is an 83-year-old female who returns for followup status post lumbar epidural steroid injection, most recently 02/14/2019. The patient did well with only about 10% improvement. The patient reports still significant pain in the left posterior hip and radiating to the left lateral thigh, some into the lateral lower leg and calf, but mostly in the hip and in the low back on the left side. The patient reports it is an aching pain, it is dull and sharp at times alternating in the low back and in the left hip especially. The patient reports it is worse with walking, standing and changing positions, especially getting up from a seated position. She is using a cane in her right hand to ambulate. The patient reports it is a 7 on a scale of 10 at its worst over the past week, 7 on average, 5 at its least and is a 7 today. The patient reports no new motor or sensory deficits, no new bowel or bladder incontinence. We did review her MRI scan with her once again. I have discussed with her on the phone back in February, also showing some moderate multilevel lumbar spondylosis and advanced lower lumbar facet arthropathy and severe subarticular recess narrowing at L3-L4, L4-L5 and L5-S1. The patient reports no new motor or sensory deficits, no new bowel or bladder incontinence or other complaints. PHYSICAL EXAMINATION: VITAL SIGNS: The patient's blood pressure is 155/74, pulse 76, respirations are 16, temperature 97.8 degrees Fahrenheit. Height is 5 feet 2 inches. Weigh is 135 pounds. GENERAL: The patient is awake, alert, oriented, appropriate, very pleasant demeanor. HEENT: Shows normocephalic, atraumatic. Extraocular movements are intact and symmetrical. Oral cavity shows mucous membranes are moist and pink. Dentition is intact. NECK: Shows anterior throat supple without palpable lymphadenopathy noted. Swallow reflex symmetrical. CHEST: Shows normal on inspection. Breath sounds are clear bilaterally. HEART: Shows S1, S2 clear. No murmurs auscultated. ABDOMEN: Soft, nontender, nondistended. BACK: Shows spine grossly in the midline, slight exaggeration of thoracic kyphosis and minor flattening of lumbar lordotic curvature. Lumbar paraspinous muscle shows symmetrical on inspection, with palpation shows some moderate tenderness diffusely bilaterally going diffusely without significant radiation. EXTREMITIES: The patient's lower extremities showed deep tendon reflexes at 1+ in the patellar and tendo calcaneus tendons. Motor exam is approximately 4 on a scale of 5 on the left and 5/5 on the right with dorsiflexion, extension, quadriceps and hamstring flexion. The patient's sacroiliac region shows significant tenderness with palpation over the posterior superior iliac spine on the left as well as over the joint itself. The right side is nontender throughout. The patient's straight leg raise noted to be mildly positive for radicular symptoms with 45 degrees leg raise on the left, but decreased with knee flexion. Gaenslen's maneuver is positive, however, on the left side with external rotation of the lower leg and posterior displacement of the lower leg off of the table. Right side is negative. Options were discussed with the patient. The patient's old chart was reviewed as her current medication regimen updated. Current review of systems updated today as well. We will proceed with a left sacroiliac joint injection today with fluoroscopic guidance. Risks were again discussed including but not limited to bleeding, infection, possibility of intravascular injection sequelae, spread of local anesthetic and numbness, side effects of steroid medication, exposure to fluoroscopy and poor results regarding pain control. The patient understands and wished to proceed. The patient will return to the clinic in approximately two weeks for followup. She was counseled on return appointment, activity level and side effects to be aware of. DIAGNOSIS: Left sacroiliitis. PROCEDURE: Left sacroiliac joint injection using C-arm fluoroscopic guidance under sterile prep and drape using local anesthetic. MEDICATIONS INJECTED: A total of 80 mg of Depo-Medrol plus 3 mL of 0.25% bupivacaine and 1.5 mL of contrast. CONDITION AT DISCHARGE: Stable. The patient tolerated procedure well, had no complications. GAVINO COOK MD DR: SHAWNA/dar JOB#: [id number] / [id number]
== END ==
LOC: PNCL 09:13
PROVIDERS: ATTEND Anesthesiology
DX: M46.1 Sacroiliitis, not elsewhere classified (principal); M51.16 Intervertebral disc disorders with radiculopathy, lumbar region; M70.62 Trochanteric bursitis, left hip
CPT/HCPCS: G0260; J1040; J3490; Q9965; 27096

== ENCOUNTER → 2019-05-22 | Outpatient (CLI) | payer MEDICARE ==
--- NOTE | 2019-05-22 21:47 | PAIN ---
DATE OF SERVICE: 05/22/2019 PROGRESS NOTE FOR PAIN CLINIC DIAGNOSES: 1. Lumbar radiculopathy with lumbar spinal stenosis, lumbar degenerative disk disease and lumbar spondylosis. 2. Left greater trochanteric bursitis. 3. Left sacroiliitis. 4. Left hip joint pain with osteoarthritis. HISTORY OF PRESENT ILLNESS: The patient is an 84-year-old female who returns for followup status post left sacroiliac joint injection, also recently lumbar epidural steroid injection in February and left hip greater trochanteric injection, all with only minimal decrease in pain. The patient has still significant left-sided pain, is now changed to more worse with weightbearing, standing, walking, climbing stairs and steps especially, she was doing some of these yesterday and had significant pain and radiation into the left groin with weightbearing. The patient reports it is getting worse with activity, standing, walking, especially climbing stairs or stepping up on a curb with significant pain in the left groin itself with ambulation and weightbearing. The patient reports it is aching, shooting, constant at times, worse when getting up from a seated position as well. The patient reports no loss of motor function, but she is using a cane again in her right hand and has it with her today. The patient reports the pain is 7 on a scale of 10 at its worst in the past week, 7 on average, 6 at its least and is a 7 today. The patient reports no new motor or sensory deficits, no new changes. PHYSICAL EXAMINATION: VITAL SIGNS: The patient's blood pressure 114/53, pulse 78, respirations 16, temperature 98.0 degrees Fahrenheit, weight is 130 pounds. GENERAL: The patient is awake, alert, oriented, appropriate, very pleasant demeanor. HEENT: Shows normocephalic, atraumatic. Extraocular movements are intact and symmetrical. Oral cavity: Mucous membranes moist and pink. Dentition is intact. NECK: Shows anterior throat supple without palpable lymphadenopathy noted. Swallow reflex symmetrical. CHEST: Shows normal on inspection. Breath sounds clear bilaterally. HEART: Shows S1, S2 clear. No murmurs auscultated. ABDOMEN: Soft, nontender, nondistended. No palpable organomegaly is noted. No rebound or guarding demonstrated. BACK: Shows spine grossly in the midline, slight exaggerated thoracic kyphosis, some minor flattening of lumbar lordotic curvature. Lumbar paraspinous muscle shows mild tenderness diffusely in the middle and lower distribution of paraspinous muscles, but without radiation. The patient has good rotational motion of lumbar spine, both laterally as well as extension and flexion without significant difficulty. EXTREMITIES: The patient's lower extremities show deep tendon reflexes at 1+ in the patellar, tendo-calcaneus tendon. Motor exam is approximately 4 on a scale of 5 on the left with dorsiflexion and extension, 5/5 on the right. The patient has some significant tenderness with external rotation of the left hip when lying supine with knee flexed, positive Jaden's maneuver on the left, but not on the right. Gaenslen's maneuvers are negative bilaterally. PLAN: Options were discussed with the patient. The patient's old chart was reviewed as her current medication regimen updated. Current review of systems updated today as well. We will proceed with a left intraarticular hip joint injection using C-arm fluoroscopic guidance. Risks were again discussed including, but not limited to bleeding, infection, possibility of intravascular injection sequelae, spread of local anesthetic and numbness, side effects of steroid medication and poor results regarding pain control. The patient understands and wished to proceed. The patient will return to the clinic in approximately 2 weeks for followup. She was counseled on return appointment, activity level and side effects to be aware of. DIAGNOSIS: Left hip joint pain with primary osteoarthritis. PROCEDURE: Left intra-articular hip joint injection using C-arm fluoroscopic guidance under sterile prep and drape using local anesthetic. MEDICATION INJECTED: A total of 3 mL of 0.25% bupivacaine, 80 mg Depo-Medrol and 2 mL of contrast. CONDITION AT DISCHARGE: Stable. The patient tolerated the procedure well, had no complications. GAVINO COOK MD DR: SHAWNA/dar JOB#: [id number] / [id number]
== END ==
LOC: PNCL 09:32
PROVIDERS: ATTEND Anesthesiology
DX: M16.12 Unilateral primary osteoarthritis, left hip (principal); M46.1 Sacroiliitis, not elsewhere classified; M54.16 Radiculopathy, lumbar region; M47.816 Spondylosis without myelopathy or radiculopathy, lumbar region; M70.62 Trochanteric bursitis, left hip; M48.061 Spinal stenosis, lumbar region without neurogenic claudication
CPT/HCPCS: 20610; 77002; J1040; J3490; Q9965

== ENCOUNTER 2019-07-29 18:02 | Inpatient (IN) | payer MEDICARE ==
[~2019-07-29] VITALS: Ht 157.5 cm; Wt 58.5 kg
[~2019-07-29 18:02] MED LIST changes: -BUPIVACAINE MPF 0.25% 10 ML VIAL. ONE; -IOHEXOL 180 MG/ML 10 ML VIAL. ONE; -methylPREDNISolone ACETATE 80 MG/ML VIAL. ONE
[2019-07-29] MEDS ORDERED: fentaNYL PF VIAL 100 MCG/2 ML VIAL IVP ONE (18:15)
[2019-07-29 18:27] LABS: BASO # 0.1 x10^3/uL (0.0-0.2); BASO % 1 % (0-3); EOS # 0.1 x10^3/uL (0.0-0.7); EOS % 1 % (0-3); HEMATOCRIT 35.7 % (36.0-47.0); HEMOGLOBIN 11.7 g/dL (12.0-15.5); LYMPH # 2.1 x10^3/uL (1.0-4.8); LYMPH % 26 % (24-48); MEAN CORPUSCULAR HEMOGLOBIN 28 pg (25-35); MEAN CORPUSCULAR HGB CONC 33 g/dL (31-37); MEAN CORPUSCULAR VOLUME 87 fL (79-100); MONO # 0.9 x10^3/uL (0.0-1.1); MONO % 11 % (0-9); NEUT # 4.9 x10^3/uL (1.8-7.7); NEUT % 61 % (31-73); PLATELET COUNT 332 x10^3/uL (140-400); RED BLOOD COUNT 4.12 x10^6/uL (3.50-5.40); RED CELL DISTRIBUTION WIDTH 15.4 % (11.5-14.5)
[2019-07-29 18:38] LABS: PROTHROMBIN TIME PATIENT 12.8 SEC (11.7-14.0)
[2019-07-29] MEDS ORDERED: MORPHINE SULFATE 4 MG/ML VIAL. IV ONE (18:45)
--- NOTE | 2019-07-29 19:14 | RAD ---
CT head and cervical spine without contrast History: Trauma Technique: Noncontrast CT imaging was performed of the head and cervical spine. Multiplanar reconstruction images are submitted. Exposure: One or more of the following individualized dose reduction techniques were utilized for this examination: 1. Automated exposure control 2. Adjustment of the mA and/or kV according to patient size 3. Use of iterative reconstruction technique. Head CT Comparison: None Findings: No acute extra-axial or parenchymal hemorrhage is identified. There is no significant intra-axial mass effect, midline shift, or extra-axial fluid collection. The patel-white differentiation of the major vascular territories is preserved. There is mild third and lateral ventriculomegaly likely due to mild generalized supratentorial atrophy. There is scattered at least mild ill-defined low-density of the supratentorial parenchyma bilaterally greatest of the frontal lobes. The mastoid air cells and the visualized paranasal sinuses are aerated. There is no significant focal calvarial abnormality. Impression: 1. No acute intracranial abnormality is identified. 2. There is mild supratentorial involutional change. Scattered ill-defined low-density of the supratentorial parenchyma is nonspecific, more commonly due to chronic microvascular ischemic disease in a patient this age. Cervical spine CT Comparison: None Findings: No acute cervical spine fracture is identified. Vertebral body stature is overall maintained. Atlanto-axial distance is within normal limits. There is appropriate alignment of lateral masses of C1 relative to C2. Occipital condylar-C1 relationship is maintained. There is fairly advanced degenerative disc disease C4-5 and C5-6 and to a lesser degree at C6-7. There is very mild grade 1 anterior spondylolisthesis C4-C5. Cervical vertebral body stature is overall maintained. There is multilevel cervical facet degenerative change. There is fairly severe narrowing of left C3-4-5 neural foramen, moderate to severe narrowing right greater than left at C5-6, lesser degree of narrowing on the right at C6-7. There is likely mild spinal stenosis about 8 to 9 mm at C5-6, also likely central canal stenosis estimated about 7 mm at C6-7. There is some atherosclerotic calcification of the carotid arteries in the neck bilaterally. There is [id number] dextroscoliosis of cervical spine. Impression: 1. No acute cervical spine fracture is identified. 2. There is multilevel cervical degenerative disc disease greatest at C4-5 and C5-6. 3. There is cervical spinal stenosis likely greatest at C6-7. There is multilevel cervical neural foramina compromise due to facet and uncovertebral degenerative change. There is cervical dextroscoliosis. Electronically signed by: Se Everett MD (07/29/2019 7:11 PM) [id number]
[2019-07-29 19:38] LABS: BILIRUBIN,URINE NEGATIVE (NEG); CLARITY,URINE CLOUDY; COLOR,URINE YELLOW; NITRITE,URINE NEGATIVE (NEG); PH,URINE 6.5; PROTEIN,URINE NEGATIVE (NEG-TRACE)
[2019-07-29 19:45] LABS: AMORPHOUS SEDIMENT,UR PRESENT /HPF; BACTERIA,URINE 0 /HPF (0-FEW); HYALINE CASTS, URINE FEW /HPF; RBC,URINE OCC /HPF (0-2); SQUAMOUS EPITHELIAL CELL,UR MOD /LPF; WBC,URINE OCC /HPF (0-4)
[2019-07-29 19:49] LABS: CALCIUM 9.5 mg/dL (8.5-10.1); GFR 52.7
[2019-07-29 19:55] LABS: ALBUMIN 2.9 g/dL (3.4-5.0); ALBUMIN/GLOBULIN RATIO 0.9 (1.0-1.7); TOTAL BILIRUBIN 0.5 mg/dL (0.2-1.0); TOTAL PROTEIN 6.2 g/dL (6.4-8.2)
--- NOTE | 2019-07-29 19:58 | RAD ---
HUMERUS RIGHT, SHOULDER 2+V RIGHT DATE: 07/29/2019 6:28 PM INDICATION: Trauma, pain COMPARISON: None. FINDINGS: Bones: Hill-Sachs deformity along the posterior humeral head.. Joints: Anterior glenohumeral dislocation. Acromioclavicular joint is congruent. IMPRESSION: Anterior glenohumeral dislocation with a Hill-Sachs deformity. Electronically signed by: Se Huizar MD (07/29/2019 7:55 PM) [id number]
[2019-07-29] MEDS ORDERED: PROPOFOL 10 MG/ML (20ML) VIAL. IV ONE (20:00)
[2019-07-29 20:06] VITALS: BP 152/70
--- NOTE | 2019-07-29 20:17 | RAD ---
HIP RIGHT 2V WITH PELVIS, TIBIA FIBULA RIGHT, RIGHT FEMUR XRAY DATE: 07/29/2019 6:59 PM INDICATION: Pain, trauma COMPARISON: None. FINDINGS: Right total hip arthroplasty. Surgical hardware is intact. No periprosthetic fracture. Right total knee arthroplasty. There are some cerclage wire fragments. Major surgical hardware is otherwise intact. Acute mildly displaced fracture of the distal femur extending from the metaphysis to the distal fibular prosthesis. Moderate degenerative changes of the left hip, SI joints, and symphysis pubis. Impression: Acute mildly displaced fracture of the distal femur extending from the metaphysis to the distal femur prosthetic component. Electronically signed by: Se Huizar MD (07/29/2019 8:14 PM) [id number]
--- NOTE | 2019-07-29 20:20 | RAD ---
EXAM: AP View of the chest DATE: 07/29/2019 6:59 PM INDICATION: Chest pain COMPARISON: No Prior FINDINGS: Heart is moderately enlarged. Aorta is tortuous. Mediastinal and hilar contours are stable. Bilateral perihilar groundglass airspace opacities are seen. Small bilateral pleural effusions. No pneumothorax. Anterior inferior dislocation right humeral head. IMPRESSION: 1. Cardiomegaly with bilateral airspace opacities and pleural effusions may be seen with pulmonary edema. Alternatively multifocal consolidative process such as pneumonia may have similar appearance. 2. Anterior inferior dislocation of the right humeral head Electronically signed by: Yves Alexis MD (07/29/2019 8:17 PM) [id number]
--- NOTE | 2019-07-29 20:50 | RAD ---
EXAM: 2 Views Right Shoulder DATE: 07/29/2019 8:19 PM INDICATION: Post shoulder reduction COMPARISON: 07/29/2019 FINDINGS: Suboptimal projection limits evaluation. Interval reduction of the right shoulder joint dislocation. AC joint degenerative changes are seen. Evaluation of the glenoid limited given projection. Right-sided parenchymal lung airspace opacities are partially profiled. IMPRESSION: 1. Interval reduction of the right shoulder. Suboptimal projections limits evaluation for underlying superimposed glenoid or humeral head fracture. Electronically signed by: Yves Alexis MD (07/29/2019 8:46 PM) [id number]
--- NOTE | 2019-07-29 21:03 | RAD ---
EXAM: AP, oblique and lateral views the right knee DATE: 07/29/2019 8:42 PM INDICATION: Right knee pain COMPARISON: No Prior FINDINGS: Changes of right total knee arthroplasty are seen. There is an acute periprosthetic fracture through the right femoral diametaphysis. Mild disc space and the lateral femoral condylar component. Small right knee joint effusion. Chronic right patellar fracture is seen with fractured patellar cerclage wires, with a small fragment displaced to the posterior joint. IMPRESSION: 1. Acute right femoral periprosthetic fracture. 2. Chronic/old right patellar fracture with fractured cerclage wires and distracted principal patellar fracture fragments. 3. Small right knee joint effusion. Electronically signed by: Yves Alexis MD (07/29/2019 9:00 PM) [id number]
[2019-07-29] MEDS ORDERED: oxyCODONE/APAP 5/325 1 TAB TABLET PO ONE (22:00)
--- NOTE | 2019-07-29 22:37 | PHYS DOC ---
Past Medical History Past Medical History: GERD, High Cholesterol, Other Additional Past Medical Histor: LOWER EXTREMITITY EDEMA Past Surgical History: Cholecystectomy, Knee Replacement, Other Additional Past Surgical Histo: VALVE REPLACEMENT Smoking Status: Never Smoker Alcohol Use: None Adult General Chief Complaint Chief Complaint: MECHANICAL FALL HPI HPI Patient is a 84 year old accidental fall from standing right shoulder injury and right knee pain. She reportedly tripped while walking at home landing on her right side and striking her ice on the ground. Denies loss of consciousness, headache, feeling dazed or neck pain. Patient with deformity right shoulder with arm held in fixed position, right knee swelling pain and tenderness with inability to stand leg secondary to pain. No hip pain, tenderness. Distal sensation and motor function intact. She is not currently on anticoagulation therapy.[] Review of Systems Review of Systems ROS as per HPI All other systems were reviewed and found to be within normal limits, except as documented in this note. Current Medications Current Medications Current Medications Medications (Trade) Dose Ordered Sig/Josefina Start Time Stop Time Status Last Admin Dose Admin Fentanyl Citrate (Fentanyl 2ml Vial) 50 mcg 1X ONCE 07/29/19 18:15 07/29/19 18:16 DC 07/29/19 18:35 50 MCG Morphine Sulfate (Morphine Sulfate) 4 mg 1X ONCE 07/29/19 18:45 07/29/19 18:46 DC 07/29/19 19:30 4 MG Oxycodone/ Acetaminophen (Percocet 5/325) 1 tab 1X ONCE 07/29/19 22:00 07/29/19 22:01 DC 07/29/19 22:00 1 TAB Propofol (Diprivan) 100 mg 1X ONCE 07/29/19 20:00 07/29/19 20:01 DC 07/29/19 20:23 100 MG Allergies Allergies Allergies Coded Allergies Type Severity Reaction Last Updated Verified No Known Drug Allergies 06/09/13 No Physical Exam Physical Exam Constitutional: Moderate distress secondary to pain, well nourished, no acute distress, non-toxic appearance. [] HENT: Normocephalic, abrasion on face, bilateral external ears normal, oropharynx moist, nose normal. [] Eyes: PERRLA, EOMI, conjunctiva normal. [] Neck: Normal range of motion, no midline tenderness, supple. [] Cardiovascular:Heart rate regular rhythm, no murmur. [] Lungs & Thorax: Bilateral breath sounds clear to auscultation [] Abdomen: Bowel sounds normal, soft, no tenderness. [] Skin: Warm, dry. [] Back: No tenderness. [] Extremities: Right shoulder, subtle deformity, shoulder held in a fixed position. Right knee, deformity, swelling and inability to flex knee. [] Neurologic: Alert and oriented X 3, normal motor function, normal sensory function, no focal deficits noted. [] Current Patient Data Vital Signs Vital Signs Date Time Temp Pulse Resp B/P (MAP) Pulse Ox O2 Delivery O2 Flow Rate FiO2 07/29/19 22:00 16 98 07/29/19 20:06 97.7 82 152/70 10.0 97.7 81 15.0 10.0 07/29/19 19:30 Room Air Lab Values Laboratory Tests Test 07/29/19 18:20 07/29/19 19:30 07/29/19 19:35 White Blood Count 8.0 x10^3/uL (4.0-11.0) Red Blood Count 4.12 x10^6/uL (3.50-5.40) Hemoglobin 11.7 g/dL (12.0-15.5) L Hematocrit 35.7 % (36.0-47.0) L Mean Corpuscular Volume 87 fL (79-100) Mean Corpuscular Hemoglobin 28 pg (25-35) Mean Corpuscular Hemoglobin Concent 33 g/dL (31-37) Red Cell Distribution Width 15.4 % (11.5-14.5) H Platelet Count 332 x10^3/uL (140-400) Neutrophils (%) (Auto) 61 % (31-73) Lymphocytes (%) (Auto) 26 % (24-48) Monocytes (%) (Auto) 11 % (0-9) H Eosinophils (%) (Auto) 1 % (0-3) Basophils (%) (Auto) 1 % (0-3) Neutrophils # (Auto) 4.9 x10^3/uL (1.8-7.7) Lymphocytes # (Auto) 2.1 x10^3/uL (1.0-4.8) Monocytes # (Auto) 0.9 x10^3/uL (0.0-1.1) Eosinophils # (Auto) 0.1 x10^3/uL (0.0-0.7) Basophils # (Auto) 0.1 x10^3/uL (0.0-0.2) Prothrombin Time 12.8 SEC (11.7-14.0) Prothrombin Time INR 1.0 (0.8-1.1) Urine Collection Type U cath Urine Color Yellow Urine Clarity Cloudy Urine pH 6.5 Urine Specific [place] 1.020 Urine Protein Negative mg/dL (NEG-TRACE) Urine Glucose (UA) Negative mg/dL (NEG) Urine Ketones (Stick) Negative mg/dL (NEG) Urine Blood Negative (NEG) Urine Nitrite Negative (NEG) Urine Bilirubin Negative (NEG) Urine Urobilinogen Dipstick 1.0 mg/dL (0.2 mg/dL) Urine Leukocyte Esterase Negative (NEG) Urine RBC Occ /HPF (0-2) Urine WBC Occ /HPF (0-4) Urine Squamous Epithelial Cells Mod /LPF Urine Amorphous Sediment Present /HPF Urine Bacteria 0 /HPF (0-FEW) Urine Hyaline Casts Few /HPF Urine Mucus Marked /LPF Sodium Level 143 mmol/L (136-145) Potassium Level 4.0 mmol/L (3.5-5.1) Chloride Level 105 mmol/L (98-107) Carbon Dioxide Level 26 mmol/L (21-32) Anion Gap 12 (6-14) Blood Urea Nitrogen 17 mg/dL (7-20) Creatinine 1.0 mg/dL (0.6-1.0) Estimated GFR (Cockcroft-Gault) 52.7 BUN/Creatinine Ratio 17 (6-20) Glucose Level 162 mg/dL (70-99) H Calcium Level 9.5 mg/dL (8.5-10.1) Total Bilirubin 0.5 mg/dL (0.2-1.0) Aspartate Amino Transferase (AST) 22 U/L (15-37) Alanine Aminotransferase (ALT) 15 U/L (14-59) Alkaline Phosphatase 69 U/L (46-116) Troponin I Quantitative < 0.017 ng/mL (0.000-0.055) WT-Bbf-P-Type Natriuretic Peptide 296 pg/mL (0-449) Total Protein 6.2 g/dL (6.4-8.2) L Albumin 2.9 g/dL (3.4-5.0) L Albumin/Globulin Ratio 0.9 (1.0-1.7) L Laboratory Tests 07/29/19 18:20 Laboratory Tests 07/29/19 19:35 EKG EKG [EKG: Reviewed] Radiology/Procedures Radiology/Procedures [CT head/cervical spine: No acute findings per radiology report] Pelvis/right hip/right femur/right knee/right tib/fib: Periprosthetic right knee fracture. Right shoulder/right humerus: Anterior shoulder dislocation. Indication: R shoulder dislocation Consent: Consent was obtained. Procedure: The pre-reduction exam showed distal perfusion and neurologic function to be normal.. The patient was placed in the appropriate position. Anesthesia/pain control propofol 80 mg,. Reduction of the R shoulder was performed by traction/counter traction]. Post reduction films were obtained and revealed satisfactory reduction. A post-reduction exam revealed distal perfusion and neurologic function to be normal. The affected area was immobilized with shoulder immobilization. The patient tolerated the procedure well. Complications: none. Course & Med Decision Making Course & Med Decision Making Pertinent Labs and Imaging studies reviewed. (See chart for details) [Patient right shoulder successfully relocated. Arm, neurologically intact on reevaluation. Imaging, reviewed with Dr. Gagnon. Recommendations are knee im mobilizer and the hospitalist admission..] Dragon Disclaimer Dragon Disclaimer This electronic medical record was generated, in whole or in part, using a voice recognition dictation system. Departure Departure Impression: Primary Impression: Dislocation of shoulder, right, closed Additional Impression: Knee fracture, right Disposition: ADMITTED INPATIENT Condition: STABLE Referrals: SHELLY FIERRO (PCP) Problem Qualifiers DARYL VASQUEZ DO Jul 29, 2019 22:37
[2019-07-29] MEDS ORDERED: ONDANSETRON PF 4 MG/2 ML VIAL. IV PRN ×2 (22:45→23:15)
[2019-07-29 23:10] VITALS: BP 146/55
[2019-07-29] MEDS ORDERED: FURO-69 PO (23:42)
[2019-07-30] MEDS ORDERED: traZODone 50 MG TABLET. PO PRN
[2019-07-30] MEDS ORDERED: POTA20TA4 PO (01:09)
[2019-07-30 03:50] VITALS: BP 141/53
[2019-07-30] MEDS: oxyCODONE/APAP 5/325 1 TAB TABLET PO PRN ×2 (03:55→08:27)
[2019-07-30 04:57] LABS: BASO # 0.1 x10^3/uL (0.0-0.2); BASO % 1 % (0-3); EOS % 0 % (0-3); HEMATOCRIT 30.8 % (36.0-47.0); HEMOGLOBIN 10.1 g/dL (12.0-15.5); LYMPH # 1.3 x10^3/uL (1.0-4.8); LYMPH % 18 % (24-48); MEAN CORPUSCULAR HEMOGLOBIN 28 pg (25-35); MEAN CORPUSCULAR HGB CONC 33 g/dL (31-37); MEAN CORPUSCULAR VOLUME 86 fL (79-100); MONO # 0.7 x10^3/uL (0.0-1.1); MONO % 10 % (0-9); NEUT # 5.4 x10^3/uL (1.8-7.7); NEUT % 71 % (31-73); PLATELET COUNT 241 x10^3/uL (140-400); RED BLOOD COUNT 3.57 x10^6/uL (3.50-5.40); WHITE BLOOD COUNT 7.6 x10^3/uL (4.0-11.0)
[2019-07-30 05:05] LABS: CALCIUM 9.2 mg/dL (8.5-10.1); GFR 52.7; POTASSIUM 4.5 mmol/L (3.5-5.1)
--- NOTE | 2019-07-30 06:43 | EKG ---
[facility] [address] [place] [address] Test Date: 2019-07-29 Test Time: 18:20:19 Pat Name: ADRIANO BARTLETT Department: Room: Gender: F Warehouse Technician: : [id number] Requested By: DARYL VASQUEZ Order Number: [id number] Reading MD: Measurements Intervals [place] Rate: 87 P: -62 NM: 154 QRS: -17 QRSD: 106 T: 114 QT: 380 QTc: 463 Interpretive Statements SUPRAVENTRICULAR RHYTHM LEFTWARD AXIS LVH WITH REPOLARIZATION ABNORMALITY ABNORMAL ECG RI6.01 No previous ECG available for comparison
[2019-07-30] MEDS: MORPHINE SULFATE 2 MG/ML VIAL. IV PRN ×2 (06:46→19:24)
[2019-07-30 07:15] VITALS: BP 109/59
--- NOTE | 2019-07-30 08:10 | PDOC1 ---
History and Physical Date of Admission Date of Admission DATE: 07/30/19 TIME: 08:09 Identification/Chief Complaint Chief Complaint Fall Source Source: Patient History of Present Illness History of Present Illness Ms Sutherland is an 84yo F w/ PMHx GERD, High Cholesterol, right knee replacement who comes to ED after accidental fall from standing right shoulder injury and right knee pain. She reportedly tripped while walking at home landing on her right side and striking her face on the ground. Denies loss of consciousness, headache, feeling dazed or neck pain. Patient with deformity right shoulder with arm held in fixed position, right knee swelling pain and tenderness with inability to stand leg secondary to pain. No hip pain, tenderness. Distal sensation and motor function intact. She is not currently on anticoagulation therapy. Found with periprosthetic fracture in right knee and right shoulder dislocation which was reduced in ED. Admitted for pain control She was placed into immobilizer in her shoulder. Her shoulder feels better this morning, little ache whenever she tries to move it. She denies any numbness or tingling in her right hand. Regarding her knee, she feels pain diffusely around her knee. Pain worse with any attempted weightbearing, doesn't really radiate. Seen by ortho here, complicated positioning. EKG consistent with LVH with leftward axis. No ST segment changes or TWI. No prior EKG for comparison available to me. CT head/cervical spine: No acute findings per radiology report Pelvis/right hip/right femur/right knee/right tib/fib: Periprosthetic right knee fracture. Right shoulder/right humerus: Anterior shoulder dislocation. Past Medical History Cardiovascular: Hyperlipidemia GI: GERD Past Surgical History Past Surgical History Other (patellar revision, possible ORIF) Past Surgical History: Appendectomy, Cholecystectomy, Total knee replacement Family History Family History: High Cholestrol Social History Smoke: No ALCOHOL: none Drugs: None Current Medications Current Medications Current Medications Fentanyl Citrate (Fentanyl 2ml Vial) 50 mcg 1X ONCE IVP Last administered on 07/29/19at 18:35; Start 07/29/19 at 18:15; Stop 07/29/19 at 18:16; Status DC Morphine Sulfate (Morphine Sulfate) 4 mg 1X ONCE IV Last administered on 07/29/19at 19:30; Start 07/29/19 at 18:45; Stop 07/29/19 at 18:46; Status DC Propofol (Diprivan) 100 mg 1X ONCE IV Last administered on 07/29/19at 20:23; Start 07/29/19 at 20:00; Stop 07/29/19 at 20:01; Status DC Oxycodone/ Acetaminophen (Percocet 5/325) 1 tab 1X ONCE PO Last administered on 07/29/19at 22:00; Start 07/29/19 at 22:00; Stop 07/29/19 at 22:01; Status DC Ondansetron HCl (Zofran) 4 mg PRN Q8HRS PRN IV NAUSEA/VOMITING 1ST CHOICE; Start 07/29/19 at 22:45; Stop 07/29/19 at 23:11; Status DC Oxycodone/ Acetaminophen (Percocet 5/325) 1 tab PRN Q4HRS PRN PO SEVERE PAIN 7- 10 Last administered on 07/30/19at 03:55; Start 07/29/19 at 22:45 Ondansetron HCl (Zofran) 4 mg PRN Q4HRS PRN IV NAUSEA/VOMITING 1ST CHOICE; Start 07/29/19 at 23:15 Morphine Sulfate (Morphine Sulfate) 2 mg PRN Q2HR PRN IV SEVERE PAIN 7-10 Last administered on 07/30/19at 06:46; Start 07/29/19 at 23:15 Trazodone HCl (Desyrel) 50 mg PRN QHS PRN PO INSOMNIA Last administered on 07/30/19at 00:06; Start 07/30/19 at 00:00 Active Scripts Active Reported Klor-Con M20 (Potassium Chloride) 20 Meq Tab.er.prt 1 Tab PO QODAY PRN 30 Days Lasix (Furosemide) 20 Mg Tablet 1 Tab PO QODAY PRN 30 Days Atorvastatin Calcium 40 Mg Tablet 80 Mg PO DAILY Spironolactone 25 Mg Tablet 1 Tab PO DAILY Vitamin D-3 (Cholecalciferol (Vitamin D3)) 2,000 Unit Capsule 2,000 Unit PO TID Prilosec (Omeprazole) 20 Mg Capsule.dr 20 Mg PO DAILY Aspir 81 (Aspirin) 81 Mg Tablet.dr 81 Mg PO DAILYWLUN Allergies Allergies: Coded Allergies: No Known Drug Allergies (Unverified , 06/09/13) ROS General: YES: Fatigue, Malaise; No: Chills, Night Sweats, Appetite, Other PSYCHOLOGICAL ROS: No: Anxiety, Behavioral Disorder, Concentration difficultie, Decreased libido, Depression, Disorientation, Hallucinations, Hostility, Irritablity, Memory difficulties, Mood Swings, Obsessive thoughts, Physical a buse, Sexual abuse, Sleep disturbances, Suicidal ideation, Other Eyes: No Blurry vision, No Decreased vision, No Double vision, No Dry eyes, No Excessive tearing, No Eye Pain, No Itchy Eyes, No Loss of vision, No Photophobia, No Scotomata, No Uses contacts, No Uses glasses, No Other HEENT: No: Heacaches, Visual Changes, Hearing change, Nasal congestion, Nasal discharge, Oral lesions, Sinus pain, Sore Throat, Epistaxis, Sneezing, Snoring, Tinnitus, Vertigo, Vocal changes, Other ALLERGY AND IMMUNOLOGY: No: Hives, Insect Bite Sensitivity, Itchy/Watery Eyes, Nasal Congestion, Post Nasal Drip, Seasonal Allergies, Other Hematological and Lymphatic: No: Bleeding Problems, Blood Clots, Blood Transfusions, Brusing, Night Sweats, Pallor, Swollen Lymph Nodes, Other ENDOCRINE: No: Breast Changes, Galactorrhea, Hair Pattern Changes, Hot Flashes, Malaise/lethargy, Mood Swings, Palpitations, Polydipsia/polyuria, Skin Changes, Temperature Intolerance, Unexpected Weight Changes, Other Breast: No New/Changing Breast Lumps, No Nipple changes, No Nipple discharge, No Other Respiratory: No: Cough, Hemoptysis, Orthopnea, Pleuritic Pain, Shortness of breath, SOB with excertion, Sputum Changes, Stridor, Tachypnea, Wheezing, Other Cardiovascular: No Chest Pain, No Palpitations, No Orthopnea, No Paroxysmal Noc. Dyspnea, No Edema, No Lt Headedness, No Other Gastrointestinal: No Nausea, No Vomiting, No Abdominal Pain, No Diarrhea, No Constipation, No Melena, No Hematochezia, No Other Genitourinary: No Dysuria, No Frequency, No Incontinence, No Hematuria, No Retention, No Discharge, No Urgency, No Pain, No Flank Pain, No Other, No , No , No , No , No , No , No Musculoskeletal: Yes Gait Disturbance, Yes Joint Pain, Yes Joint Stiffness, Yes Muscle Pain; No Joint Swelling, No Muscular Weakness, No Pain In:, No Swelling In:, No Other Neurological: No Behavorial Changes, No Bowel/Bladder ControlChng, No Confusion, No Dizziness, No Gait Disturbance, No Headaches, No Impaired Coord/balance, No Memory Loss, No Numbness/Tingling, No Seizures, No Speech Problems, No Tremors, No Visual Changes, No Weakness, No Other Skin: No Dry Skin, No Eczema, No Hair Changes, No Lumps, No Mole Changes, No Mottling, No Nail Changes, No Pruritus, No Rash, No Skin Lesion Changes, No Other, No Acne Physical Exam General: Alert, Oriented X3, Cooperative, No acute distress HEENT: Atraumatic, PERRLA, EOMI, Mucous membr. moist/pink Lungs: Clear to auscultation, Normal air movement Heart: S1S2, RRR, no thrills, no rubs, no gallops, no murmurs Abdomen: Normal bowel sounds, Soft, No tenderness, No hepatosplenomegaly, No masses Rectal Exam: not examined Extremities: Other (Right shoulder in immbolizer, right knee as well) Skin: No rashes, No breakdown, No significant lesion Neuro: Normal speech, Normal tone, Sensation intact, Cranial nerves 3-12 NL, Reflexes 2+ Psych/Mental Status: Mental status NL, Mood NL Vitals Vitals Vital Signs Date Time Temp Pulse Resp B/P (MAP) Pulse Ox O2 Delivery O2 Flow Rate FiO2 07/30/19 07:15 97.8 79 18 109/59 (76) 97 Room Air 97.8 07/30/19 06:46 10.0 Labs Labs Laboratory Tests Test 07/29/19 18:20 07/29/19 19:30 07/29/19 19:35 07/30/19 03:40 White Blood Count 8.0 x10^3/uL (4.0-11.0) 7.6 x10^3/uL (4.0-11.0) Red Blood Count 4.12 x10^6/uL (3.50-5.40) 3.57 x10^6/uL (3.50-5.40) Hemoglobin 11.7 g/dL (12.0-15.5) 10.1 g/dL (12.0-15.5) Hematocrit 35.7 % (36.0-47.0) 30.8 % (36.0-47.0) Mean Corpuscular Volume 87 fL (79-100) 86 fL (79-100) Mean Corpuscular Hemoglobin 28 pg (25-35) 28 pg (25-35) Mean Corpuscular Hemoglobin Concent 33 g/dL (31-37) 33 g/dL (31-37) Red Cell Distribution Width 15.4 % (11.5-14.5) 15.0 % (11.5-14.5) Platelet Count 332 x10^3/uL (140-400) 241 x10^3/uL (140-400) Neutrophils (%) (Auto) 61 % (31-73) 71 % (31-73) Lymphocytes (%) (Auto) 26 % (24-48) 18 % (24-48) Monocytes (%) (Auto) 11 % (0-9) 10 % (0-9) Eosinophils (%) (Auto) 1 % (0-3) 0 % (0-3) Basophils (%) (Auto) 1 % (0-3) 1 % (0-3) Neutrophils # (Auto) 4.9 x10^3/uL (1.8-7.7) 5.4 x10^3/uL (1.8-7.7) Lymphocytes # (Auto) 2.1 x10^3/uL (1.0-4.8) 1.3 x10^3/uL (1.0-4.8) Monocytes # (Auto) 0.9 x10^3/uL (0.0-1.1) 0.7 x10^3/uL (0.0-1.1) Eosinophils # (Auto) 0.1 x10^3/uL (0.0-0.7) 0.0 x10^3/uL (0.0-0.7) Basophils # (Auto) 0.1 x10^3/uL (0.0-0.2) 0.1 x10^3/uL (0.0-0.2) Prothrombin Time 12.8 SEC (11.7-14.0) Prothromb Time International Ratio 1.0 (0.8-1.1) Urine Collection Type U cath Urine Color Yellow Urine Clarity Cloudy Urine pH 6.5 Urine Specific [place] 1.020 Urine Protein Negative mg/dL (NEG-TRACE) Urine Glucose (UA) Negative mg/dL (NEG) Urine Ketones (Stick) Negative mg/dL (NEG) Urine Blood Negative (NEG) Urine Nitrite Negative (NEG) Urine Bilirubin Negative (NEG) Urine Urobilinogen Dipstick 1.0 mg/dL (0.2 mg/dL) Urine Leukocyte Esterase Negative (NEG) Urine RBC Occ /HPF (0-2) Urine WBC Occ /HPF (0-4) Urine Squamous Epithelial Cells Mod /LPF Urine Amorphous Sediment Present /HPF Urine Bacteria 0 /HPF (0-FEW) Urine Hyaline Casts Few /HPF Urine Mucus Marked /LPF Sodium Level 143 mmol/L (136-145) 141 mmol/L (136-145) Potassium Level 4.0 mmol/L (3.5-5.1) 4.5 mmol/L (3.5-5.1) Chloride Level 105 mmol/L (98-107) 104 mmol/L (98-107) Carbon Dioxide Level 26 mmol/L (21-32) 29 mmol/L (21-32) Anion Gap 12 (6-14) 8 (6-14) Blood Urea Nitrogen 17 mg/dL (7-20) 19 mg/dL (7-20) Creatinine 1.0 mg/dL (0.6-1.0) 1.0 mg/dL (0.6-1.0) Estimated GFR (Cockcroft-Gault) 52.7 52.7 BUN/Creatinine Ratio 17 (6-20) Glucose Level 162 mg/dL (70-99) 116 mg/dL (70-99) Calcium Level 9.5 mg/dL (8.5-10.1) 9.2 mg/dL (8.5-10.1) Total Bilirubin 0.5 mg/dL (0.2-1.0) Aspartate Amino Transf (AST/SGOT) 22 U/L (15-37) Alanine Aminotransferase (ALT/SGPT) 15 U/L (14-59) Alkaline Phosphatase 69 U/L (46-116) Troponin I Quantitative < 0.017 ng/mL (0.000-0.055) KA-Dwj-B-Type Natriuretic Peptide 296 pg/mL (0-449) Total Protein 6.2 g/dL (6.4-8.2) Albumin 2.9 g/dL (3.4-5.0) Albumin/Globulin Ratio 0.9 (1.0-1.7) Laboratory Tests Test 07/29/19 18:20 07/29/19 19:30 07/29/19 19:35 07/30/19 03:40 White Blood Count 8.0 x10^3/uL (4.0-11.0) 7.6 x10^3/uL (4.0-11.0) Red Blood Count 4.12 x10^6/uL (3.50-5.40) 3.57 x10^6/uL (3.50-5.40) Hemoglobin 11.7 g/dL (12.0-15.5) 10.1 g/dL (12.0-15.5) Hematocrit 35.7 % (36.0-47.0) 30.8 % (36.0-47.0) Mean Corpuscular Volume 87 fL (79-100) 86 fL (79-100) Mean Corpuscular Hemoglobin 28 pg (25-35) 28 pg (25-35) Mean Corpuscular Hemoglobin Concent 33 g/dL (31-37) 33 g/dL (31-37) Red Cell Distribution Width 15.4 % (11.5-14.5) 15.0 % (11.5-14.5) Platelet Count 332 x10^3/uL (140-400) 241 x10^3/uL (140-400) Neutrophils (%) (Auto) 61 % (31-73) 71 % (31-73) Lymphocytes (%) (Auto) 26 % (24-48) 18 % (24-48) Monocytes (%) (Auto) 11 % (0-9) 10 % (0-9) Eosinophils (%) (Auto) 1 % (0-3) 0 % (0-3) Basophils (%) (Auto) 1 % (0-3) 1 % (0-3) Neutrophils # (Auto) 4.9 x10^3/uL (1.8-7.7) 5.4 x10^3/uL (1.8-7.7) Lymphocytes # (Auto) 2.1 x10^3/uL (1.0-4.8) 1.3 x10^3/uL (1.0-4.8) Monocytes # (Auto) 0.9 x10^3/uL (0.0-1.1) 0.7 x10^3/uL (0.0-1.1) Eosinophils # (Auto) 0.1 x10^3/uL (0.0-0.7) 0.0 x10^3/uL (0.0-0.7) Basophils # (Auto) 0.1 x10^3/uL (0.0-0.2) 0.1 x10^3/uL (0.0-0.2) Prothrombin Time 12.8 SEC (11.7-14.0) Prothromb Time International Ratio 1.0 (0.8-1.1) Urine Collection Type U cath Urine Color Yellow Urine Clarity Cloudy Urine pH 6.5 Urine Specific [place] 1.020 Urine Protein Negative mg/dL (NEG-TRACE) Urine Glucose (UA) Negative mg/dL (NEG) Urine Ketones (Stick) Negative mg/dL (NEG) Urine Blood Negative (NEG) Urine Nitrite Negative (NEG) Urine Bilirubin Negative (NEG) Urine Urobilinogen Dipstick 1.0 mg/dL (0.2 mg/dL) Urine Leukocyte Esterase Negative (NEG) Urine RBC Occ /HPF (0-2) Urine WBC Occ /HPF (0-4) Urine Squamous Epithelial Cells Mod /LPF Urine Amorphous Sediment Present /HPF Urine Bacteria 0 /HPF (0-FEW) Urine Hyaline Casts Few /HPF Urine Mucus Marked /LPF Sodium Level 143 mmol/L (136-145) 141 mmol/L (136-145) Potassium Level 4.0 mmol/L (3.5-5.1) 4.5 mmol/L (3.5-5.1) Chloride Level 105 mmol/L (98-107) 104 mmol/L (98-107) Carbon Dioxide Level 26 mmol/L (21-32) 29 mmol/L (21-32) Anion Gap 12 (6-14) 8 (6-14) Blood Urea Nitrogen 17 mg/dL (7-20) 19 mg/dL (7-20) Creatinine 1.0 mg/dL (0.6-1.0) 1.0 mg/dL (0.6-1.0) Estimated GFR (Cockcroft-Gault) 52.7 52.7 BUN/Creatinine Ratio 17 (6-20) Glucose Level 162 mg/dL (70-99) 116 mg/dL (70-99) Calcium Level 9.5 mg/dL (8.5-10.1) 9.2 mg/dL (8.5-10.1) Total Bilirubin 0.5 mg/dL (0.2-1.0) Aspartate Amino Transf (AST/SGOT) 22 U/L (15-37) Alanine Aminotransferase (ALT/SGPT) 15 U/L (14-59) Alkaline Phosphatase 69 U/L (46-116) Troponin I Quantitative < 0.017 ng/mL (0.000-0.055) RO-Ued-D-Type Natriuretic Peptide 296 pg/mL (0-449) Total Protein 6.2 g/dL (6.4-8.2) Albumin 2.9 g/dL (3.4-5.0) Albumin/Globulin Ratio 0.9 (1.0-1.7) Images Images CT head/cervical spine: No acute findings per radiology report Pelvis/right hip/right femur/right knee/right tib/fib: Periprosthetic right knee fracture. Right shoulder/right humerus: Anterior shoulder dislocation. VTE Prophylaxis Ordered VTE Prophylaxis Devices: No VTE Pharmacological Prophylaxi: Yes Assessment/Plan Assessment/Plan A/P: Periprosthetic right knee fracture - pain control, not able to bear weight. Ortho consulted: "The very low nature of her fracture and the patellar fragmentation, I think this is outside of my skill set and recommend that we transferred for higher level of orthopedic reconstructive care" - Right shoulder/right humerus: Anterior shoulder dislocation. GERD - on PPI HLD - statin LE edema - on diuretics. Will hold for now FEN - General diet PPX - heparin 5000u SC TID FULL CODE Dispo - inpatient for pain control. After d/w ortho and patient a transfer for higher level of orthopedic care is necessary. He recommends [place] or [facility]. She has been to [facility] previously. Will place call out for transfer. ANNIE CARDOZA MD Jul 30, 2019 08:10
--- NOTE | 2019-07-30 09:03 | PDOC2 ---
CONSULT Date of Consult Date of Consult DATE: 07/30/19 TIME: 08:59 Reason for Consult Reason for Consult: Right shoulder dislocation and periprosthetic right knee fracture Referring Physician Referring Physician: Concepcion Identification/Chief Complaint Chief Complaint Right knee pain Source Source: Chart review, Patient History of Present Illness Reason for Visit: Patient is a very pleasant 84-year-old female who has had 2 prior knee surgeries, she cannot recall the dates, one for the total knee in 1 for work on her [employer], according to her. She lost her footing yesterday and had a fall, she suffered a shoulder dislocation, it is the first and the best her memory. Her shoulder is reduced in the emergency department, she was placed into immobilizer. Her shoulder feels better this morning, little ache whenever she tries to move it. She denies any numbness or tingling in her right hand. Regarding her knee, she feels pain diffusely around her knee. His worse with any attempted weightbearing, doesn't really radiate. Past Surgical History Past Surgical History: Appendectomy, Cholecystectomy, Total knee replacement, Other (patellar revision, possible ORIF) Family History Family History: Heart Disease Social History No ALCOHOL: none Current Medications Current Medications Current Medications Fentanyl Citrate (Fentanyl 2ml Vial) 50 mcg 1X ONCE IVP Last administered on 07/29/19at 18:35; Start 07/29/19 at 18:15; Stop 07/29/19 at 18:16; Status DC Morphine Sulfate (Morphine Sulfate) 4 mg 1X ONCE IV Last administered on 07/29/19at 19:30; Start 07/29/19 at 18:45; Stop 07/29/19 at 18:46; Status DC Propofol (Diprivan) 100 mg 1X ONCE IV Last administered on 07/29/19at 20:23; Start 07/29/19 at 20:00; Stop 07/29/19 at 20:01; Status DC Oxycodone/ Acetaminophen (Percocet 5/325) 1 tab 1X ONCE PO Last administered on 07/29/19at 22:00; Start 07/29/19 at 22:00; Stop 07/29/19 at 22:01; Status DC Ondansetron HCl (Zofran) 4 mg PRN Q8HRS PRN IV NAUSEA/VOMITING 1ST CHOICE; Start 07/29/19 at 22:45; Stop 07/29/19 at 23:11; Status DC Oxycodone/ Acetaminophen (Percocet 5/325) 1 tab PRN Q4HRS PRN PO SEVERE PAIN 7- 10 Last administered on 07/30/19at 08:27; Start 07/29/19 at 22:45 Ondansetron HCl (Zofran) 4 mg PRN Q4HRS PRN IV NAUSEA/VOMITING 1ST CHOICE; Start 07/29/19 at 23:15 Morphine Sulfate (Morphine Sulfate) 2 mg PRN Q2HR PRN IV SEVERE PAIN 7-10 Last administered on 07/30/19at 06:46; Start 07/29/19 at 23:15 Trazodone HCl (Desyrel) 50 mg PRN QHS PRN PO INSOMNIA Last administered on 07/30/19at 00:06; Start 07/30/19 at 00:00 Active Scripts Active Reported Klor-Con M20 (Potassium Chloride) 20 Meq Tab.er.prt 1 Tab PO QODAY PRN 30 Days Lasix (Furosemide) 20 Mg Tablet 1 Tab PO QODAY PRN 30 Days Atorvastatin Calcium 40 Mg Tablet 80 Mg PO DAILY Spironolactone 25 Mg Tablet 1 Tab PO DAILY Vitamin D-3 (Cholecalciferol (Vitamin D3)) 2,000 Unit Capsule 2,000 Unit PO TID Prilosec (Omeprazole) 20 Mg Capsule.dr 20 Mg PO DAILY Aspir 81 (Aspirin) 81 Mg Tablet.dr 81 Mg PO DAILYWLUN Allergies Allergies: Coded Allergies: No Known Drug Allergies (Unverified , 06/09/13) ROS General: No: Chills, Night Sweats, Fatigue, Malaise, Appetite, Other PSYCHOLOGICAL ROS: No: Anxiety, Behavioral Disorder, Concentration difficultie, Decreased libido, Depression, Disorientation, Hallucinations, Hostility, Irritablity, Memory difficulties, Mood Swings, Obsessive thoughts, Physical abuse, Sexual abuse, Sleep disturbances, Suicidal ideation, Other Eyes: No Blurry vision, No Decreased vision, No Double vision, No Dry eyes, No Excessive tearing, No Eye Pain, No Itchy Eyes, No Loss of vision, No Photophobia, No Scotomata, No Uses contacts, No Uses glasses, No Other HEENT: No: Heacaches, Visual Changes, Hearing change, Nasal congestion, Nasal discharge, Oral lesions, Sinus pain, Sore Throat, Epistaxis, Sneezing, Snoring, Tinnitus, Vertigo, Vocal changes, Other ALLERGY AND IMMUNOLOGY: No: Hives, Insect Bite Sensitivity, Itchy/Watery Eyes, Nasal Congestion, Post Nasal Drip, Seasonal Allergies, Other Hematological and Lymphatic: No: Bleeding Problems, Blood Clots, Blood Transfusions, Brusing, Night Sweats, Pallor, Swollen Lymph Nodes, Other ENDOCRINE: No: Breast Changes, Galactorrhea, Hair Pattern Changes, Hot Flashes, Malaise/lethargy, Mood Swings, Palpitations, Polydipsia/polyuria, Skin Changes, Temperature Intolerance, Unexpected Weight Changes, Other Respiratory: No: Cough, Hemoptysis, Orthopnea, Pleuritic Pain, Shortness of breath, SOB with excertion, Sputum Changes, Stridor, Tachypnea, Wheezing, Other Cardiovascular: No Chest Pain, No Palpitations, No Orthopnea, No Paroxysmal Noc. Dyspnea, No Edema, No Lt Headedness, No Other Gastrointestinal: No Nausea, No Vomiting, No Abdominal Pain, No Diarrhea, No Constipation, No Melena, No Hematochezia, No Other Genitourinary: No Dysuria, No Frequency, No Incontinence, No Hematuria, No Retention, No Discharge, No Urgency, No Pain, No Flank Pain, No Other, No , No , No , No , No , No , No Musculoskeletal: Yes Gait Disturbance, Yes Joint Pain, Yes Joint Stiffness Neurological: Yes Gait Disturbance Skin: No Dry Skin, No Eczema, No Hair Changes, No Lumps, No Mole Changes, No Mottling, No Nail Changes, No Pruritus, No Rash, No Skin Lesion Changes, No Other, No Acne Physical Exam General: Alert, Oriented X3 HEENT: Atraumatic, EOMI Lungs: Other (respirations are unlabored with symmetric chest rise) Heart: Regular rate Abdomen: Soft, No tenderness Extremities: No edema, Normal pulses Neuro: Normal speech, Strength at 5/5 X4 ext, Sensation intact Psych/Mental Status: Mental status NL, Mood NL MUSCULOSKELETAL: Other (right upper extremity is in a shoulder immobilizer. She has arthritic deformity at her fingers, normal motor and sensation in her right hand. Examination of her right lower extremity reveals she is in an immobilizer. Her cells pedis is 1+, she can wiggle her toes. Skin is intact over her knee, sh e does have an effusion present and incisions consistent with her surgical history.) Vitals VITALS Vital Signs Date Time Temp Pulse Resp B/P (MAP) Pulse Ox O2 Delivery O2 Flow Rate FiO2 07/30/19 08:27 Room Air 07/30/19 07:15 97.8 79 18 109/59 (76) 97 97.8 07/30/19 06:46 10.0 Labs Labs Laboratory Tests Test 07/29/19 18:20 07/29/19 19:30 07/29/19 19:35 07/30/19 03:40 White Blood Count 8.0 x10^3/uL (4.0-11.0) 7.6 x10^3/uL (4.0-11.0) Red Blood Count 4.12 x10^6/uL (3.50-5.40) 3.57 x10^6/uL (3.50-5.40) Hemoglobin 11.7 g/dL (12.0-15.5) 10.1 g/dL (12.0-15.5) Hematocrit 35.7 % (36.0-47.0) 30.8 % (36.0-47.0) Mean Corpuscular Volume 87 fL (79-100) 86 fL (79-100) Mean Corpuscular Hemoglobin 28 pg (25-35) 28 pg (25-35) Mean Corpuscular Hemoglobin Concent 33 g/dL (31-37) 33 g/dL (31-37) Red Cell Distribution Width 15.4 % (11.5-14.5) 15.0 % (11.5-14.5) Platelet Count 332 x10^3/uL (140-400) 241 x10^3/uL (140-400) Neutrophils (%) (Auto) 61 % (31-73) 71 % (31-73) Lymphocytes (%) (Auto) 26 % (24-48) 18 % (24-48) Monocytes (%) (Auto) 11 % (0-9) 10 % (0-9) Eosinophils (%) (Auto) 1 % (0-3) 0 % (0-3) Basophils (%) (Auto) 1 % (0-3) 1 % (0-3) Neutrophils # (Auto) 4.9 x10^3/uL (1.8-7.7) 5.4 x10^3/uL (1.8-7.7) Lymphocytes # (Auto) 2.1 x10^3/uL (1.0-4.8) 1.3 x10^3/uL (1.0-4.8) Monocytes # (Auto) 0.9 x10^3/uL (0.0-1.1) 0.7 x10^3/uL (0.0-1.1) Eosinophils # (Auto) 0.1 x10^3/uL (0.0-0.7) 0.0 x10^3/uL (0.0-0.7) Basophils # (Auto) 0.1 x10^3/uL (0.0-0.2) 0.1 x10^3/uL (0.0-0.2) Prothrombin Time 12.8 SEC (11.7-14.0) Prothromb Time International Ratio 1.0 (0.8-1.1) Urine Collection Type U cath Urine Color Yellow Urine Clarity Cloudy Urine pH 6.5 Urine Specific [place] 1.020 Urine Protein Negative mg/dL (NEG-TRACE) Urine Glucose (UA) Negative mg/dL (NEG) Urine Ketones (Stick) Negative mg/dL (NEG) Urine Blood Negative (NEG) Urine Nitrite Negative (NEG) Urine Bilirubin Negative (NEG) Urine Urobilinogen Dipstick 1.0 mg/dL (0.2 mg/dL) Urine Leukocyte Esterase Negative (NEG) Urine RBC Occ /HPF (0-2) Urine WBC Occ /HPF (0-4) Urine Squamous Epithelial Cells Mod /LPF Urine Amorphous Sediment Present /HPF Urine Bacteria 0 /HPF (0-FEW) Urine Hyaline Casts Few /HPF Urine Mucus Marked /LPF Sodium Level 143 mmol/L (136-145) 141 mmol/L (136-145) Potassium Level 4.0 mmol/L (3.5-5.1) 4.5 mmol/L (3.5-5.1) Chloride Level 105 mmol/L (98-107) 104 mmol/L (98-107) Carbon Dioxide Level 26 mmol/L (21-32) 29 mmol/L (21-32) Anion Gap 12 (6-14) 8 (6-14) Blood Urea Nitrogen 17 mg/dL (7-20) 19 mg/dL (7-20) Creatinine 1.0 mg/dL (0.6-1.0) 1.0 mg/dL (0.6-1.0) Estimated GFR (Cockcroft-Gault) 52.7 52.7 BUN/Creatinine Ratio 17 (6-20) Glucose Level 162 mg/dL (70-99) 116 mg/dL (70-99) Calcium Level 9.5 mg/dL (8.5-10.1) 9.2 mg/dL (8.5-10.1) Total Bilirubin 0.5 mg/dL (0.2-1.0) Aspartate Amino Transf (AST/SGOT) 22 U/L (15-37) Alanine Aminotransferase (ALT/SGPT) 15 U/L (14-59) Alkaline Phosphatase 69 U/L (46-116) Troponin I Quantitative < 0.017 ng/mL (0.000-0.055) MC-Zsk-Q-Type Natriuretic Peptide 296 pg/mL (0-449) Total Protein 6.2 g/dL (6.4-8.2) Albumin 2.9 g/dL (3.4-5.0) Albumin/Globulin Ratio 0.9 (1.0-1.7) Laboratory Tests Test 07/29/19 18:20 07/29/19 19:30 07/29/19 19:35 07/30/19 03:40 White Blood Count 8.0 x10^3/uL (4.0-11.0) 7.6 x10^3/uL (4.0-11.0) Red Blood Count 4.12 x10^6/uL (3.50-5.40) 3.57 x10^6/uL (3.50-5.40) Hemoglobin 11.7 g/dL (12.0-15.5) 10.1 g/dL (12.0-15.5) Hematocrit 35.7 % (36.0-47.0) 30.8 % (36.0-47.0) Mean Corpuscular Volume 87 fL (79-100) 86 fL (79-100) Mean Corpuscular Hemoglobin 28 pg (25-35) 28 pg (25-35) Mean Corpuscular Hemoglobin Concent 33 g/dL (31-37) 33 g/dL (31-37) Red Cell Distribution Width 15.4 % (11.5-14.5) 15.0 % (11.5-14.5) Platelet Count 332 x10^3/uL (140-400) 241 x10^3/uL (140-400) Neutrophils (%) (Auto) 61 % (31-73) 71 % (31-73) Lymphocytes (%) (Auto) 26 % (24-48) 18 % (24-48) Monocytes (%) (Auto) 11 % (0-9) 10 % (0-9) Eosinophils (%) (Auto) 1 % (0-3) 0 % (0-3) Basophils (%) (Auto) 1 % (0-3) 1 % (0-3) Neutrophils # (Auto) 4.9 x10^3/uL (1.8-7.7) 5.4 x10^3/uL (1.8-7.7) Lymphocytes # (Auto) 2.1 x10^3/uL (1.0-4.8) 1.3 x10^3/uL (1.0-4.8) Monocytes # (Auto) 0.9 x10^3/uL (0.0-1.1) 0.7 x10^3/uL (0.0-1.1) Eosinophils # (Auto) 0.1 x10^3/uL (0.0-0.7) 0.0 x10^3/uL (0.0-0.7) Basophils # (Auto) 0.1 x10^3/uL (0.0-0.2) 0.1 x10^3/uL (0.0-0.2) Prothrombin Time 12.8 SEC (11.7-14.0) Prothromb Time International Ratio 1.0 (0.8-1.1) Urine Collection Type U cath Urine Color Yellow Urine Clarity Cloudy Urine pH 6.5 Urine Specific [place] 1.020 Urine Protein Negative mg/dL (NEG-TRACE) Urine Glucose (UA) Negative mg/dL (NEG) Urine Ketones (Stick) Negative mg/dL (NEG) Urine Blood Negative (NEG) Urine Nitrite Negative (NEG) Urine Bilirubin Negative (NEG) Urine Urobilinogen Dipstick 1.0 mg/dL (0.2 mg/dL) Urine Leukocyte Esterase Negative (NEG) Urine RBC Occ /HPF (0-2) Urine WBC Occ /HPF (0-4) Urine Squamous Epithelial Cells Mod /LPF Urine Amorphous Sediment Present /HPF Urine Bacteria 0 /HPF (0-FEW) Urine Hyaline Casts Few /HPF Urine Mucus Marked /LPF Sodium Level 143 mmol/L (136-145) 141 mmol/L (136-145) Potassium Level 4.0 mmol/L (3.5-5.1) 4.5 mmol/L (3.5-5.1) Chloride Level 105 mmol/L (98-107) 104 mmol/L (98-107) Carbon Dioxide Level 26 mmol/L (21-32) 29 mmol/L (21-32) Anion Gap 12 (6-14) 8 (6-14) Blood Urea Nitrogen 17 mg/dL (7-20) 19 mg/dL (7-20) Creatinine 1.0 mg/dL (0.6-1.0) 1.0 mg/dL (0.6-1.0) Estimated GFR (Cockcroft-Gault) 52.7 52.7 BUN/Creatinine Ratio 17 (6-20) Glucose Level 162 mg/dL (70-99) 116 mg/dL (70-99) Calcium Level 9.5 mg/dL (8.5-10.1) 9.2 mg/dL (8.5-10.1) Total Bilirubin 0.5 mg/dL (0.2-1.0) Aspartate Amino Transf (AST/SGOT) 22 U/L (15-37) Alanine Aminotransferase (ALT/SGPT) 15 U/L (14-59) Alkaline Phosphatase 69 U/L (46-116) Troponin I Quantitative < 0.017 ng/mL (0.000-0.055) XF-Xvl-P-Type Natriuretic Peptide 296 pg/mL (0-449) Total Protein 6.2 g/dL (6.4-8.2) Albumin 2.9 g/dL (3.4-5.0) Albumin/Globulin Ratio 0.9 (1.0-1.7) Images Images X-rays were interpreted by myself, anterior glenohumeral dislocation, reduced. She has a very distal periprosthetic total knee arthroplasty fracture around her femoral component with fragmentation of hardware and patella seen as well. Assessment/Plan Assessment/Plan Given the bone stock, the very low nature of her fracture and the patellar fragmentation, I think this is outside of my skill set and recommend that we transferred for higher level of orthopedic reconstructive care. I would recommend DVT prophylaxis in the meantime. RAFI DELCID II, MD Jul 30, 2019 09:03
[2019-07-30 11:09] VITALS: BP 112/56
--- NOTE | 2019-07-30 11:14 | NUR ---
Dr. Javier on the unit, notified of Dr. Gagnon's recommendation that pt be transferred to [facility] or [facility] for surgery.
--- NOTE | 2019-07-30 12:40 | NUR ---
Pt suddenly vomiting what appears to be undigested food. Denies pain, c/o mild dizziness prior to vomiting. Zofran given. After pt settled plan to place pt on P500 bed.
[2019-07-30] MEDS ORDERED: HEPARIN for SUB-Q USE 5,000 UNIT/ML VIAL. SQ SCH (14:00)
--- NOTE | 2019-07-30 14:14 | NUR ---
SW following. Discussed with RN. Pt needing a transfer to or [facility] for surgery needed. [facility] contacted , they requested clinicals and for Dr. Javier to contact them. [facility] provided phone number to Dr. Javier, and faxed clinicals. Awaiting acceptance. [facility] will continue to follow.
--- NOTE | 2019-07-30 14:55 | NUR ---
Pt. awakened to active vomiting, liquid emesis. Pt. stated it started suddenly again, denies abd pain. Dr. Javier paged. Pt. vomited onto immobilizer, new one obtained from [facility].
[2019-07-30 15:04] VITALS: BP 116/61
[2019-07-30] MEDS ORDERED: METOCLOPRAMIDE HCL 10 MG/2 ML VIAL. IVP PRN (15:30)
--- NOTE | 2019-07-30 16:00 | NUR ---
Wound Care: Wound care consult for R medical ankle stasis ulcer. Wound cleansed with saline wash, measured and dressed with xeroform and foam. Pt in pain so wc was unable to remove knee brace which is on d/t fracture. No other wounds noted on skin assessment. Pt educated on pressure ulcer prevention and encouraged to turn every couple of hours. Pt left turned on her left. SHEA Weber at bedside and informed of POC. Wound care will follow up on 08/06.
[2019-07-30] MEDS ORDERED: TRAZ-118 PO (16:21)
[2019-07-30] MEDS ORDERED: OXYC1TAB15 PO (16:21)
--- NOTE | 2019-07-30 16:23 | SNU/HH DC ---
DISCHARGE ORDERS DISCHARGE INFORMATION: DISCHARGE DATE: Jul 30, 2019 FINAL DIAGNOSIS Right distal femoral fracture CONDITION ON DISCHARGE: Stable CODE STATUS: Code Status: Full POST DISCHARGE ORDERS: DIET AFTER DISCHARGE: Cardiac CHECKS AFTER DISCHARGE: CHECKS AFTER DISCHARGE: Check blood press - daily, Check your Temp as needed FOLLOW-UP: PHYSICIAN FOLLOW-UP: Orthopedic surgery TREATMENT/EQUIPMENT ORDERS: Physical Therapy For: Evalulation/Treatment Occupational Therapy For: Evaluation/Treatment DISCHARGE MEDICATIONS: Home Meds Active Scripts Oxycodone/Apap 5-325 (PERCOCET 5-325 MG TABLET ) 1 Each Tablet, 1 TAB PO PRN Q4HRS PRN for SEVERE PAIN 7-10 for 6 Days, #15 TAB Prov:ANNIE CARDOZA MD 07/30/19 Trazodone Hcl (TRAZODONE HCL) 50 Mg Tablet, 50 MG PO PRN QHS PRN for INSOMNIA for 30 Days, #30 TAB Prov:ANNIE CARDOZA MD 07/30/19 Reported Medications Potassium Chloride (KLOR-CON M20) 20 Meq Tab.er.prt, 1 TAB PO QODAY PRN for replacement for 30 Days, #30 TAB 0 Refills 07/30/19 Furosemide (LASIX) 20 Mg Tablet, 1 TAB PO QODAY PRN for edema for 30 Days, #30 TAB 0 Refills 07/29/19 Atorvastatin Calcium (ATORVASTATIN CALCIUM) 40 Mg Tablet, 80 MG PO DAILY for FOR CHOLESTEROL, #30 TAB 0 Refills 04/24/19 Spironolactone (SPIRONOLACTONE) 25 Mg Tablet, 1 TAB PO DAILY for htn, #90 TAB 1 Refill 04/24/19 Cholecalciferol (Vitamin D3) (VITAMIN D-3) 2,000 Unit Capsule, 2000 UNIT PO TID 06/09/13 Omeprazole (PRILOSEC) 20 Mg Capsule., 20 MG PO DAILY 06/09/13 Aspirin (ASPIR 81) 81 Mg Tablet.dr, 81 MG PO DAILYWLUN 06/09/13 ANNIE CARDOZA MD Jul 30, 2019 16:23
[2019-07-30] MEDS ORDERED: PANTOPRAZOLE IV PUSH 40 MG VIAL. IVP ONE (16:45)
--- NOTE | 2019-07-30 18:11 | NUR ---
Pt. projectile vomiting, emesis rust in color. Pt. vomited approx. 500cc. Dr. Gonzales notified, telephone orders received.
[2019-07-30] MEDS ORDERED: PROCHLORPERAZINE 10 MG/2 ML VIAL. IV PRN (18:15)
[2019-07-30] MEDS ORDERED: IV NORMAL SALINE 1000ML BAG 1,000 ML IV SCH (18:15)
[2019-07-30 19:00] VITALS: BP 145/50
--- NOTE | 2019-07-30 19:15 | NUR ---
Transportation via EMS set up for transfer to [facility] after 2014.
--- NOTE | 2019-07-30 20:52 | NUR ---
Pt. was transferred to [facility] via EMS. Pt. left floor at 2042.
--- NOTE | 2019-07-31 05:16 | PDOC ---
G I PROGRESS NOTE Objective Patient dismissed before could be seen. Review of Relevant I have reviewed the following items mihai (where applicable) has been applied. Labs Laboratory Tests Test 07/29/19 18:20 07/29/19 19:30 07/29/19 19:35 07/30/19 03:40 White Blood Count 8.0 x10^3/uL (4.0-11.0) 7.6 x10^3/uL (4.0-11.0) Red Blood Count 4.12 x10^6/uL (3.50-5.40) 3.57 x10^6/uL (3.50-5.40) Hemoglobin 11.7 g/dL (12.0-15.5) 10.1 g/dL (12.0-15.5) Hematocrit 35.7 % (36.0-47.0) 30.8 % (36.0-47.0) Mean Corpuscular Volume 87 fL (79-100) 86 fL (79-100) Mean Corpuscular Hemoglobin 28 pg (25-35) 28 pg (25-35) Mean Corpuscular Hemoglobin Concent 33 g/dL (31-37) 33 g/dL (31-37) Red Cell Distribution Width 15.4 % (11.5-14.5) 15.0 % (11.5-14.5) Platelet Count 332 x10^3/uL (140-400) 241 x10^3/uL (140-400) Neutrophils (%) (Auto) 61 % (31-73) 71 % (31-73) Lymphocytes (%) (Auto) 26 % (24-48) 18 % (24-48) Monocytes (%) (Auto) 11 % (0-9) 10 % (0-9) Eosinophils (%) (Auto) 1 % (0-3) 0 % (0-3) Basophils (%) (Auto) 1 % (0-3) 1 % (0-3) Neutrophils # (Auto) 4.9 x10^3/uL (1.8-7.7) 5.4 x10^3/uL (1.8-7.7) Lymphocytes # (Auto) 2.1 x10^3/uL (1.0-4.8) 1.3 x10^3/uL (1.0-4.8) Monocytes # (Auto) 0.9 x10^3/uL (0.0-1.1) 0.7 x10^3/uL (0.0-1.1) Eosinophils # (Auto) 0.1 x10^3/uL (0.0-0.7) 0.0 x10^3/uL (0.0-0.7) Basophils # (Auto) 0.1 x10^3/uL (0.0-0.2) 0.1 x10^3/uL (0.0-0.2) Prothrombin Time 12.8 SEC (11.7-14.0) Prothromb Time International Ratio 1.0 (0.8-1.1) Urine Collection Type U cath Urine Color Yellow Urine Clarity Cloudy Urine pH 6.5 Urine Specific [place] 1.020 Urine Protein Negative mg/dL (NEG-TRACE) Urine Glucose (UA) Negative mg/dL (NEG) Urine Ketones (Stick) Negative mg/dL (NEG) Urine Blood Negative (NEG) Urine Nitrite Negative (NEG) Urine Bilirubin Negative (NEG) Urine Urobilinogen Dipstick 1.0 mg/dL (0.2 mg/dL) Urine Leukocyte Esterase Negative (NEG) Urine RBC Occ /HPF (0-2) Urine WBC Occ /HPF (0-4) Urine Squamous Epithelial Cells Mod /LPF Urine Amorphous Sediment Present /HPF Urine Bacteria 0 /HPF (0-FEW) Urine Hyaline Casts Few /HPF Urine Mucus Marked /LPF Sodium Level 143 mmol/L (136-145) 141 mmol/L (136-145) Potassium Level 4.0 mmol/L (3.5-5.1) 4.5 mmol/L (3.5-5.1) Chloride Level 105 mmol/L (98-107) 104 mmol/L (98-107) Carbon Dioxide Level 26 mmol/L (21-32) 29 mmol/L (21-32) Anion Gap 12 (6-14) 8 (6-14) Blood Urea Nitrogen 17 mg/dL (7-20) 19 mg/dL (7-20) Creatinine 1.0 mg/dL (0.6-1.0) 1.0 mg/dL (0.6-1.0) Estimated GFR (Cockcroft-Gault) 52.7 52.7 BUN/Creatinine Ratio 17 (6-20) Glucose Level 162 mg/dL (70-99) 116 mg/dL (70-99) Calcium Level 9.5 mg/dL (8.5-10.1) 9.2 mg/dL (8.5-10.1) Total Bilirubin 0.5 mg/dL (0.2-1.0) Aspartate Amino Transf (AST/SGOT) 22 U/L (15-37) Alanine Aminotransferase (ALT/SGPT) 15 U/L (14-59) Alkaline Phosphatase 69 U/L (46-116) Troponin I Quantitative < 0.017 ng/mL (0.000-0.055) JV-Pvl-O-Type Natriuretic Peptide 296 pg/mL (0-449) Total Protein 6.2 g/dL (6.4-8.2) Albumin 2.9 g/dL (3.4-5.0) Albumin/Globulin Ratio 0.9 (1.0-1.7) Medications Current Medications Fentanyl Citrate (Fentanyl 2ml Vial) 50 mcg 1X ONCE IVP Last administered on 07/29/19at 18:35; Start 07/29/19 at 18:15; Stop 07/29/19 at 18:16; Status DC Morphine Sulfate (Morphine Sulfate) 4 mg 1X ONCE IV Last administered on 07/29/19at 19:30; Start 07/29/19 at 18:45; Stop 07/29/19 at 18:46; Status DC Propofol (Diprivan) 100 mg 1X ONCE IV Last administered on 07/29/19at 20:23; Start 07/29/19 at 20:00; Stop 07/29/19 at 20:01; Status DC Oxycodone/ Acetaminophen (Percocet 5/325) 1 tab 1X ONCE PO Last administered on 07/29/19at 22:00; Start 07/29/19 at 22:00; Stop 07/29/19 at 22:01; Status DC Ondansetron HCl (Zofran) 4 mg PRN Q8HRS PRN IV NAUSEA/VOMITING 1ST CHOICE; Start 07/29/19 at 22:45; Stop 07/29/19 at 23:11; Status DC Oxycodone/ Acetaminophen (Percocet 5/325) 1 tab PRN Q4HRS PRN PO SEVERE PAIN 7- 10 Last administered on 07/30/19 08:27; Start 07/29/19 at 22:45; Stop 07/30/19 at 21:00; Status DC Ondansetron HCl (Zofran) 4 mg PRN Q4HRS PRN IV NAUSEA/VOMITING 1ST CHOICE Last administered on 07/30/19at 12:37; Start 07/29/19 at 23:15; Stop 07/30/19 at 21:00; Status DC Morphine Sulfate (Morphine Sulfate) 2 mg PRN Q2HR PRN IV SEVERE PAIN 7-10 Last administered on 07/30/19 19:24; Start 07/29/19 at 23:15; Stop 07/30/19 at 21:00; Status DC Trazodone HCl (Desyrel) 50 mg PRN QHS PRN PO INSOMNIA Last administered on 07/30/19at 00:06; Start 07/30/19 at 00:00; Stop 07/30/19 at 21:00; Status DC Heparin Sodium (Porcine) (Heparin Sodium) 5,000 unit Q8HRS SQ Last administered on 07/30/19at 14:53; Start 07/30/19 at 14:00; Stop 07/30/19 at 21:00; Status DC Metoclopramide HCl (Reglan Vial) 10 mg PRN Q6HRS PRN IVP NAUSEA/VOMITING, 2ND CHOICE Last administered on 07/30/19at 15:57; Start 07/30/19 at 15:30; Stop 07/30/19 at 21:00; Status DC Pantoprazole Sodium (PROTONIX VIAL for IV PUSH) 40 mg 1X ONCE IVP Last administered on 07/30/19 17:05; Start 07/30/19 at 16:45; Stop 07/30/19 at 16:46; Status DC Sodium Chloride 1,000 ml @ 75 mls/hr [id number] IV Last administered on 07/30/19at 18:36; Start 07/30/19 at 18:15; Stop 07/30/19 at 21:00; Status DC Prochlorperazine Edisylate (Compazine) 10 mg PRN Q8HRS PRN IV NAUSEA/VOMITING Last administered on 07/30/19at 18:36; Start 07/30/19 at 18:15; Stop 07/30/19 at 21:00; Status DC Active Scripts Active Percocet 5-325 Mg Tablet (Oxycodone/Acetaminophen) 1 Each Tablet 1 Tab PO PRN Q4HRS PRN 6 Days Trazodone Hcl 50 Mg Tablet 50 Mg PO PRN QHS PRN 30 Days Reported Klor-Con M20 (Potassium Chloride) 20 Meq Tab.er.prt 1 Tab PO QODAY PRN 30 Days Lasix (Furosemide) 20 Mg Tablet 1 Tab PO QODAY PRN 30 Days Atorvastatin Calcium 40 Mg Tablet 80 Mg PO DAILY Spironolactone 25 Mg Tablet 1 Tab PO DAILY Vitamin D-3 (Cholecalciferol (Vitamin D3)) 2,000 Unit Capsule 2,000 Unit PO TID Prilosec (Omeprazole) 20 Mg Capsule.dr 20 Mg PO DAILY Aspir 81 (Aspirin) 81 Mg Tablet.dr 81 Mg PO DAILYWLUN Vitals/I & O Vital Sign - Last 24 Hours 07/30/19 07/30/19 07/30/19 07/30/19 07:15 07:40 08:08 08:27 Temp 97.8 97.8 Pulse 79 Resp 18 B/P (MAP) 109/59 (76) Pulse Ox 97 O2 Delivery Room Air Room Air Room Air Room Air 07/30/19 07/30/19 07/30/19 07/30/19 09:29 11:09 15:04 19:00 Temp 98.0 97.6 98.0 98.0 97.6 98.0 Pulse 73 71 97 Resp 18 16 18 B/P (MAP) 112/56 (74) 116/61 (79) 145/50 (81) Pulse Ox 96 97 93 O2 Delivery Room Air Room Air Room Air Room Air 07/30/19 07/30/19 07/30/19 19:24 19:54 20:34 O2 Delivery Room Air Room Air Room Air Intake and Output 07/30/19 07/30/19 07/31/19 15:00 23:00 07:00 Intake Total 240 ml Output Total 300 ml 1250 ml Balance -60 ml -1250 ml MARIBEL SALGADO MD Jul 31, 2019 05:16
== END 2019-07-30 20:43 | disposition short-term general hospital (02) | DRG 563 ==
LOC: ER 18:02 → 4 NORTH 21:00
PROVIDERS: ADMIT Internal Medicine; ATTEND Internal Medicine
DX: S43.014A Anterior dislocation of right humerus, initial encounter (principal); M97.11XA Periprosthetic fracture around internal prosthetic right knee joint, initial encounter; K21.9 Gastro-esophageal reflux disease without esophagitis; E78.5 Hyperlipidemia, unspecified; E78.00 Pure hypercholesterolemia, unspecified; W01.0XXA Fall on same level from slipping, tripping and stumbling without subsequent striking against object, initial encounter; Y93.01 Activity, walking, marching and hiking; Y92.89 Other specified places as the place of occurrence of the external cause; Y99.8 Other external cause status; Z95.2 Presence of prosthetic heart valve; Z82.49 Family history of ischemic heart disease and other diseases of the circulatory system
CPT/HCPCS: 23650; 36415; 70450; 71045; 72125; 73030; 73060; 73502; 73552; 73562; 73590; 80048; 80053; 81001; 83880; 84484; 85025; 85610; 93005; 96374; 96375; C9113; J0780; J1644; J2270; J2405; J2704; J2765; J3010; J7030; 99285-25; G0378